=== PATIENT | female | born 1990 | race Caucasian/White ===

== ENCOUNTER → 2016-09-02 | Outpatient (CLI) | payer BC ==
[2016-09-02 16:24] LABS: CH 32.1; CHCM 34.8; HCT 36.7 % (34.0-46.0); HDW 2.95; HGB 12.7 gm/dL (11.4-16.0); MCH 31.9 pg (25.0-35.0); MCHC 34.5 g/dL (31.0-37.0); MCV 92.7 fL (80.0-100.0); Mean Platelet Volume 6.6; RBC 3.97 m/uL (3.80-5.40); RDW 13.1 % (11.5-15.5); WBC 8.1 k/uL (3.8-10.6)
== END | disposition home or self-care (01) ==
LOC: LABWHC1 15:05
PROVIDERS: ATTEND Obstetrics & Gynecology
DX: Z34.92 Encounter for supervision of normal pregnancy, unspecified, second trimester (principal); Z3A.00 Weeks of gestation of pregnancy not specified
CPT/HCPCS: 36415; 82950; 85027

== ENCOUNTER → 2016-10-22 | Outpatient (CLI) | payer BC ==
--- NOTE | 2016-10-23 09:34 | US ---
EXAMINATION TYPE: US OB anatomy transabd DATE OF EXAM: 10/22/2016 4:39 PM COMPARISON: NONE HISTORY: Large for Dates O36.63X0 LGA, pt has no other complaints at this time TECHNIQUE: Transabdominal (TA) EXAM MEASUREMENTS: GESTATIONAL AGE / DATING Physician Established: (33 weeks/4 days) EDC: 12/06/2016 Dates by LMP: Unknown Dates by First Scan: No prior Dates by Current Scan for: (33 weeks/4 days) EDC: 12/06/2016 SURVEY IUP: Single PLACENTA: Posterior PREVIA: No previa FANNY: 13.7 cm Normal CERVICAL LENGTH (transabdominal: norm > 3.0cm): 3.5 cm BIOMETRY PRESENTATION: Vertex BPD: 8.5 cm 34 weeks / 2 days HC: 31.4 cm 35 weeks / 2 days AC: 30.7 cm 34 weeks / 5 days FL: 5.7 cm 30 weeks / 0 days ESTIMATED WEIGHT IN GRAMS: 2177 grams ESTIMATED WEIGHT IN LBS/OZS: 4 lbs. 13 oz. WEIGHT PERCENTAGE BASED ON ESTABLISHED DATE: 36 % HC/AC: 1.02 Normal FL/AC: 19 Abnormal HEART RATE: 146 bpm RHYTHM: Normal ANATOMY SEEN (within normal limits): * Lateral Vent (< 1 cm) 0.3 cm Midline Falx Cavus Septi Pellucidi Four Chamber Heart Outflow tracts: LVOT Stomach Situs Nose / Lips Diaphragm Kidneys (bilateral) Bladder Cord Insert Three Vessel Cord ANATOMY NOT SEEN: * Cisterna Magna (< 1.1 cm) cm * Nuchal Fold (< 0.6 cm) cm * Cerebellum (varies with age) cm Choroid Plexus (bilateral) RVOT Longitudinal Spine Transverse Spine Arms (bilateral) Legs (bilateral) Single, viable IUP, Growth parameters wnl, FL/AC slightly abnormal- could be technical, otherwise s can appeared wnl IMPRESSION: 1. 3. Cardiac activity at the time of this examination was 146 bpm. Single intrauterine gestation estima radha at 33 weeks 4 days gestation based on the current ultrasound measurements. This has a calculated EDC of 12/06/2016. Correlate this with the physician established EDC of 12/06/2016. 2. Lower portions of the examination which were nondiagnostic for the anatomy during this exam.
== END | disposition home or self-care (01) ==
LOC: RADUSWWP 16:17
PROVIDERS: ATTEND Obstetrics & Gynecology
DX: O36.63X0 Maternal care for excessive fetal growth, third trimester, not applicable or unspecified (principal); Z3A.33 33 weeks gestation of pregnancy
CPT/HCPCS: 76811

== ENCOUNTER 2016-10-26 13:53 | Observation (INO) | payer BC, OTHER ==
[2016-10-26 15:42] LABS: Amorphous Sediment,Urine Occasional /hpf; Appearance,Urine Cloudy (Clear); Bilirubin,Urine Negative (Negative); Glucose,Urine (UA) Negative (Negative); Ketones,Urine Negative (Negative); Leukocyte Esterase,Urine Small (Negative); Mucus,Urine Rare /hpf; Nitrite,Urine Negative (Negative); PH, Urine 7.5 (5.0-8.0); Particle Count 9340; Protein,Urine Trace (Negative); RBC,Urine 1 /hpf (0-5); Specific Gravity,Urine 1.017 (1.001-1.035); Squamous Epithelial Cell,Urine 22 /hpf (0-4); UA Billing (MACRO vs. MICRO) MICRO; WBC,Urine 11 /hpf (0-5)
[2016-10-26] MEDS: LACTATED RINGERS 2,000 ML IV SCH ×2 (16:00→16:51)
[2016-10-26 16:36] LABS: Basophils # (A) 0.1 k/uL (0-0.2); Basophils % (A) 1 %; CH 31.1; CHCM 33.4; Eosinophils # (A) 0.2 k/uL (0-0.7); Eosinophils % (A) 2 %; HCT 38.4 % (34.0-46.0); HDW 3.28; HGB 12.7 gm/dL (11.4-16.0); Luc # (Auto) 0.25; Luc % (Auto) 3; Lymphocytes # (A) 1.3 k/uL (1.0-4.8); Lymphocytes % (A) 18 %; MCH 30.9 pg (25.0-35.0); MCV 93.7 fL (80.0-100.0); Mean Platelet Volume 6.6; Monocytes # (A) 0.5 k/uL (0-1.0); Monocytes % (A) 7 %; Neutrophils # (A) 5.1 k/uL (1.3-7.7); Neutrophils % (A) 69 %; RBC 4.09 m/uL (3.80-5.40); RDW 13.2 % (11.5-15.5); WBC 7.4 k/uL (3.8-10.6); WBC (Perox) 7.72
[2016-10-26] MEDS: BETAMET ACET-BETAMETH SOD PHOS 6 MG/ML VIAL IM SCH (16:52)
[2016-10-26] MEDS: NIFEdipine 10 MG CAP PO PRN ×3 (17:57→18:52)
[2016-10-26] MEDS ORDERED: LACTATED RINGERS 1,000 ML IV SCH (18:00)
[2016-10-26 20:08] VITALS: BMI 30.1
--- NOTE | 2016-10-26 20:21 | P.MSEPDOC ---
Presenting Problems - Arrival Data Date of Arrival on Unit: 10/26/16 Time of Arrival on Unit: 19:45 Mode of Transport: Ambulatory - Complaint OB-Reason for Admission/Chief Complaint: Possible Onset of Labor Medical History - Information : 7 Para: 1 Term: 1 : 0 Abortions: Spontaneous or Elective: 0 Number of Living Children: 1 - Gestational Age Expected Date of Delivery: 12/06/16 Gestational Age by OSWALDO (wks/days): 34 Weeks and 1 Days Review of Systems - Review of Systems Constitutional: No problems Breast: No problems ENT: No problems Cardiovascular: No problems Respiratory: No problems Gastrointestinal: No problems Genitourinary: No problems Musculoskeletal: No problems Neurological: No problems Skin: No problems Comment: mild asthma Vital Signs - Temperature Temperature: 97.7 F Temperature Source: Temporal Artery Scan - Pulse Brachial Pulse Rate: 102 Pulse Assessment Method: Automatic Cuff - Respirations Respiratory Rate: 18 Oxygen Delivery Method: Room Air - Blood Pressure Right Arm Blood Pressure: 121/67 Blood Pressure Mean: 85 Blood Pressure Source: Automatic Cuff Medical Screen Scoring (Pre) - Cervical Exam Dilation: 0 cm = 0 Membranes: Intact - Uterine Contractions Frequency: < 36 weeks = 6 Duration: N/A Intensity: N/A - Maternal Vital Signs Maternal Temperature: N/A Maternal Blood Pressure: N/A Signs of Preeclampsia: N/A Maternal Respirations: N/A - Maternal Trauma Maternal Trauma: N/A - Assessment Baseline FHR: 140 Heart Rate - NICHD Category: Category I (Normal) = 0 NST: Reactive - Total Score Total Score (Pre): 6 Physician Notification (Pre) - Physician Notified Physician Notified Date: 10/26/16 Physician Notified Time: 14:50 Physician/Practitioner Notifed:: dr pruett Spoke With: dr pruett - Notification Comment Comment: Get UA and oral hydration Physician Notification (Post) - Physician Notified Physician Notified Date: 10/26/16 Physician Notified Time: 19:25 Physician/Practitioner Notified:: Dr Pruett Spoke With: Dr Pruett - Notification Comment Comment: Admit as 23 hour OBV Disposition - Disposition OB Disposition: Admit Transferred to:: [facility] I agree with the RN Medical Screening Exam: Yes Risk & Benefit of care provided described in d/c instruction: Yes Diagnosis: LABOR WITHOUT DELIVERY, THIRD TRIMESTER
[2016-10-26] MEDS: ACETAMINOPHEN TAB 500 MG TAB PO PRN (20:32)
[2016-10-26] MEDS ORDERED: BUTORPHANOL 1 MG/ML 1 ML VIAL IV PRN (22:41)
[2016-10-27] MEDS: NIFEdipine 10 MG CAP PO SCH ×3 (01:00→13:15)
[2016-10-27] MEDS: LACTATED RINGERS 1,000 ML IV SCH ×3 (01:03→15:20)
[2016-10-27 07:39] VITALS: BP 118/64; PULSE 93; RESP 17; TEMP 97.1
[2016-10-27] MEDS: ACETAMINOPHEN TAB 500 MG TAB PO PRN (07:44)
[2016-10-27] MEDS: BETAMET ACET-BETAMETH SOD PHOS 6 MG/ML VIAL IM SCH (16:57)
--- NOTE | 2016-10-27 17:10 | P.DS ---
Providers Date of admission: 10/26/16 19:34 Expected date of discharge: 10/27/16 Attending physician: Jayy Long Primary care physician: Jayy Long Hospital Course: She had is doing very well. She is now received 2 doses of Celestone has been here for greater than 24 hours. Contractions have essentially dissipated. In discussing options with Gisele the decision was made that she did not want to go home on any medication. This is certainly reasonable approach as typically we would not send her home on any tocolytics. We'll plan to see her in 2 days in the office. She is aware to return with increasing contractions or or pains. Vital signs otherwise stable. Heart regular, lungs clear, extremities without pain. Abdomen is soft and normal no further contractions. Assessment intrauterine at 34 weeks. Plan discharged home follow up in 2 days. Patient Condition at Discharge: Good Plan - Discharge Summary Discharge Medication List No Known Home Medications [No Known Home Medications] 10/26/16 [History] Follow up Appointment(s)/Referral(s): Jayy Long DO [Primary Care Provider] - 3 Days Activity/Diet/Wound Care/Special Instructions: pelvic rest. modified bed rest until 35 weeks Discharge Disposition: HOME SELF-CARE
== END 2016-10-27 17:35 | disposition home or self-care (01) ==
LOC: FBPOP 13:53 → 4FBP 19:34
PROVIDERS: ADMIT Obstetrics & Gynecology; ATTEND Obstetrics & Gynecology
DX: O60.03 Preterm labor without delivery, third trimester (principal); Z3A.34 34 weeks gestation of pregnancy
CPT/HCPCS: 59025; 99214; 96360; 96361; 96372; 85025; 81001; G0378 ×2; J0702 ×2

== ENCOUNTER 2016-11-02 20:25 | Observation (INO) | payer BC, OTHER ==
[2016-11-02 21:52] LABS: Basophils % (A) 1 %; CHCM 34.3; Eosinophils # (A) 0.2 k/uL (0-0.7); Eosinophils % (A) 2 %; HCT 34.8 % (34.0-46.0); HDW 3.31; HGB 11.8 gm/dL (11.4-16.0); Luc # (Auto) 0.21; Luc % (Auto) 3; Lymphocytes # (A) 1.5 k/uL (1.0-4.8); Lymphocytes % (A) 18 %; MCH 30.9 pg (25.0-35.0); MCV 90.8 fL (80.0-100.0); Mean Platelet Volume 6.6; Monocytes # (A) 0.6 k/uL (0-1.0); Monocytes % (A) 7 %; Neutrophils # (A) 5.9 k/uL (1.3-7.7); Neutrophils % (A) 70 %; RBC 3.83 m/uL (3.80-5.40); RDW 13.3 % (11.5-15.5); WBC 8.4 k/uL (3.8-10.6); WBC (Perox) 8.82
[2016-11-02] MEDS: BUTORPHANOL 1 MG/ML 1 ML VIAL IV PRN (22:03)
[2016-11-02] MEDS ORDERED: ONDANSETRON 4 MG/2 ML VIAL IVP PRN (23:33)
[2016-11-02] MEDS ORDERED: BUTORPHANOL 1 MG/ML 1 ML VIAL IV PRN (23:34)
[2016-11-02 23:57] VITALS: BP 114/58; PULSE 93; RESP 18; TEMP 96.6; BMI 29.0
[2016-11-03] MEDS: BUTORPHANOL 1 MG/ML 1 ML VIAL IV PRN ×4 (00:02→06:04)
[2016-11-03] MEDS: LACTATED RINGERS 1,000 ML IV SCH ×2 (00:11→09:07)
--- NOTE | 2016-11-03 11:08 | P.HPOB ---
History of Present Illness H&P Date: 11/03/16 Chief Complaint: Intrauterine 35 weeks: labor Dianne is a 26-year-old at 35 weeks gestation who has been anurag every 2-5 minutes throughout the night. She began naurag last evening and got very severe and her mother brought her into labor and delivery. At that time she was dilated to an intact 3 cm 50% effaced and -3 station. She was tracing contractions every few minutes on the tocodynamometer but despite this over the first 2 hours she made no cervical change. However she stated her pain was a 10 out of 10 and she was given Stadol to see if we could get her pain better and maybe get her some rest and see if the contractions would stop. They did not stop and she requested to stay overnight with pain control. We have admitted her for same. heart tones are in the 130s to 140s and have been reactive. There are no other gross findings. Her course otherwise generally speaking has been unremarkable. Vital signs are stable and afebrile. Heart regular, lungs clear, extremities without pain. Abdomen is soft and gravid uterus is noted. I did palpate her uterus this morning and during a contraction I would rate the contraction has mild to almost moderate but certainly not severe. Assessment intrauterine 35 weeks. Plan observation and then likely discharge with no further cervical change. Past Medical History Past Medical History: No Reported History History of Any Multi-Drug Resistant Organisms: None Reported Past Surgical History: No Surgical Hx Reported Past Anesthesia/Blood Transfusion Reactions: No Reported Reaction Past Psychological History: Bipolar, Depression Smoking Status: Never smoker Past Alcohol Use History: Occasional Past Drug Use History: None Reported - Past Family History Mother Family Medical History: Cancer Father Family Medical History: AFIB Medications and Allergies Home Medications Medication Instructions Recorded Confirmed Type Pnv with Ca,No.72/Iron/FA 1 tab PO DAILY 11/02/16 11/02/16 History [ Plus Tablet] Allergies Allergy/AdvReac Type Severity Reaction Status Date / Time Sulfa (Sulfonamide Allergy Rash/Hives Verified 11/02/16 20:38 Antibiotics) venom-honey bee Allergy Unknown Verified 11/02/16 20:38 [bee venom (honey bee)] Exam Osteopathic Statement: *. No significant issues noted on an osteopathic structural exam other than those noted in the History and Physical/Consult. - Vital Signs Vital signs: Vital Signs Temp Pulse Resp BP Pulse Ox 11/02/16 23:32 96.6 F L 93 18 114/58 99 11/02/16 21:39 96.6 F L 93 18 114/58 11/02/16 20:39 96.9 F L 122 H 20 129/79 99 Intake and Output 11/02/16 11/03/16 11/03/16 22:59 06:59 14:59 Intake Total 700 Balance 700 Intake: IV 700 Lactated Ringers 1,000 ml 700 @ 100 mls/hr IV .Q10H [facility] Rx#:[id number] Other: # Voids 1 Weight 83.915 kg 83.915 kg Results Result Diagrams: 11/02/16 21:01
--- NOTE | 2016-11-03 11:10 | P.DS ---
Providers Date of admission: 11/02/16 23:19 Expected date of discharge: 11/03/16 Attending physician: Jayy Long Primary care physician: Stated None Hospital Course: I did recheck Gisele and she was still 2 and half to 3 cm dilated percent effaced -3 station. Over 14 are timeframe she is made no cervical change and as stated previously I did not believe her contraction was that strong. We discussed labor as a dynamic of contractions strong enough to cause cervical change both thinning out and dilating. She is made no change now for approximately 14 hours and we'll therefore discharged patient to home. During this discussion with she and her I did offer to start her on Procardia and watch her for another couple of hours and see if that the stated the contractions she refuses this treatment option. 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 She is aware to return to labor and delivery should contractions get stronger and more regular. As stated previously the contractions on the monitor are not registering as strong and are certainly not in a clear labor pattern. Assessment intrauterine at 35 weeks. Plan discharged home follow up with me on or return sooner should contractions get stronger or leaking of fluid or other signs or symptoms of labor continue to happen Patient Condition at Discharge: Good Plan - Discharge Summary Discharge Medication List Pnv with Ca,No.72/Iron/FA [ Plus Tablet] 1 tab PO DAILY 11/02/16 [ History] Follow up Appointment(s)/Referral(s): Jayy Long DO [Doctor of Osteopathic Medicine] - 3 Days Activity/Diet/Wound Care/Special Instructions: Return with stronger contractions Discharge Disposition: HOME SELF-CARE
--- NOTE | 2016-12-24 08:18 | P.MSEPDOC ---
Presenting Problems - Arrival Data Date of Arrival on Unit: 11/02/16 Time of Arrival on Unit: 20:25 Mode of Transport: Ambulatory - Complaint OB-Reason for Admission/Chief Complaint: Possible Onset of Labor Medical History - Information : 7 Para: 1 Term: 1 : 0 Abortions: Spontaneous or Elective: 5 Number of Living Children: 1 - Gestational Age Expected Date of Delivery: 12/06/16 Gestational Age by OSWALDO (wks/days): 42 Weeks and 4 Days Review of Systems - Review of Systems Constitutional: No problems Breast: No problems ENT: No problems Cardiovascular: No problems Respiratory: No problems Gastrointestinal: No problems Genitourinary: No problems Musculoskeletal: No problems Neurological: No problems Skin: No problems Vital Signs - Temperature Temperature: 96.6 F Temperature Source: Temporal Artery Scan - Pulse Right Pulse Rate: 93 Pulse Assessment Method: Automatic Cuff - Respirations Respiratory Rate: 18 Oxygen Delivery Method: Room Air O2 Sat by Pulse Oximetry: 99 - Blood Pressure Right Arm Blood Pressure: 114/58 Blood Pressure Mean: 76 Blood Pressure Source: Automatic Cuff Medical Screen Scoring (Pre) - Cervical Exam Dilation: 1-3 cm = 1 Effacement: More than 50% = 2 Membranes: Intact - Uterine Contractions Frequency: > 5 minutes apart = 1 Duration: > 40 seconds = 2 Intensity: N/A - Maternal Vital Signs Maternal Temperature: N/A Maternal Blood Pressure: N/A Signs of Preeclampsia: N/A Maternal Respirations: N/A - Maternal Trauma Maternal Trauma: N/A - Assessment Baseline FHR: 135 Heart Rate - NICHD Category: Category I (Normal) = 0 NST: Reactive Position: N/A Station: N/A - Total Score Total Score (Pre): 6 - Level of Risk Level of Risk: Medium (6-9) Physician Notification (Pre) - Physician Notified Physician Notified Date: 11/02/16 Physician Notified Time: 20:46 Physician/Practitioner Notifed:: Dr. Long Spoke With: Dr. Long New Order Received: Yes - Notification Comment Comment: Orders for IV hydration and recheck in hour. Medical Screen Scoring (Post) - Cervical Exam Dilation: 1-3 cm = 1 Effacement: More than 50% = 2 Membranes: Intact - Uterine Contractions Frequency: > 5 minutes apart = 1 Duration: N/A Intensity: N/A - Maternal Vital Signs Maternal Temperature: N/A Maternal Blood Pressure: N/A Signs of Preeclampsia: N/A Maternal Respirations: N/A - Maternal Trauma Maternal Trauma: N/A - Assessment Heart Rate: 135 Heart Rate - NICHD Category: Category I (Normal) = 0 NST: Reactive Position: N/A Station: N/A - Total Score Total Score (Post): 4 - Post Treatment Level of Risk Post Treatment Level of Risk: Low (0-5) Physician Notification (Post) - Physician Notified Physician Notified Date: 11/02/16 Physician Notified Time: 23:15 Physician/Practitioner Notified:: Dr. Long Spoke With: Dr. Long New Order Received: Yes - Notification Comment Comment: Orders for zofran,stadol, and continue IV hydration. Disposition - Disposition OB Disposition: Admit, Observe Transferred to:: [address] Discharge Date: 11/03/16 Discharge Time: 11:30 I agree with the RN Medical Screening Exam: Yes Risk & Benefit of care provided described in d/c instruction: Yes Diagnosis: RELATED CONDITIONS, UNSPECIFIED, THIRD TRIMESTER
== END 2016-11-03 11:30 | disposition home or self-care (01) ==
LOC: FBPOP 20:25 → 4FBP 23:19
PROVIDERS: ADMIT Obstetrics & Gynecology; ATTEND Obstetrics & Gynecology
DX: O26.93 Pregnancy related conditions, unspecified, third trimester (principal); Z3A.35 35 weeks gestation of pregnancy; Z79.899 Other long term (current) drug therapy; Z88.2 Allergy status to sulfonamides; Z91.030 Bee allergy status
CPT/HCPCS: 59025; 99214; 96360; 96361; 85025; G0378 ×2; J0595 ×2; J2405; 96374; 96375; 96376

== ENCOUNTER 2016-11-17 18:02 | Inpatient (IN) | payer BC, OTHER ==
[2016-11-17] MEDS ORDERED: OXYTOCIN 10 UNIT/ML 1 ML VIAL IM PRN (19:14)
[2016-11-17] MEDS ORDERED: TERBUTALINE 1 MG/ML VIAL SQ PRN (19:14)
[2016-11-17] MEDS ORDERED: CARBOPROST TROMETHAMINE 250 MCG/ML 1 ML AMP IM PRN (19:14)
[2016-11-17] MEDS ORDERED: AMPICILLIN 2,000 MG in SODIUM CHLORIDE 0.9% 100 ML IVPB STA (19:14)
[2016-11-17] MEDS ORDERED: METHYLERGONOVINE 0.2 MG/ML 1 ML AMP IM PRN (19:14)
[2016-11-17] MEDS ORDERED: LIDOCAINE 1% (PF) 10 MG/ML (30 ML SDV) SQ PRN (19:14)
[2016-11-17 19:45] VITALS: BMI 67.8
[2016-11-17] MEDS: LACTATED RINGERS 1,000 ML IV SCH (19:48)
[2016-11-17 19:55] LABS: Basophils % (A) 0 %; CH 30.5; CHCM 34.6; Eosinophils # (A) 0.1 k/uL (0-0.7); Eosinophils % (A) 1 %; HCT 38.8 % (34.0-46.0); HDW 3.25; HGB 13.2 gm/dL (11.4-16.0); Luc # (Auto) 0.23; Luc % (Auto) 2; Lymphocytes # (A) 1.6 k/uL (1.0-4.8); Lymphocytes % (A) 17 %; MCH 30.2 pg (25.0-35.0); MCHC 34.1 g/dL (31.0-37.0); MCV 88.6 fL (80.0-100.0); Mean Platelet Volume 6.7; Monocytes # (A) 0.6 k/uL (0-1.0); Monocytes % (A) 6 %; Neutrophils % (A) 73 %; RBC 4.38 m/uL (3.80-5.40); RDW 13.9 % (11.5-15.5); WBC 9.6 k/uL (3.8-10.6); WBC (Perox) 9.54
[2016-11-17] MEDS ORDERED: fentaNYL (PF) 50 MCG/ML 5 ML AMP ONE (20:10)
[2016-11-17] MEDS ORDERED: SODIUM CHLORIDE 0.9% 100 ML BAG ONE (20:10)
[2016-11-17] MEDS ORDERED: BUPIVACAINE (PF) 0.25% 30 ML VIAL ONE (20:10)
[2016-11-17] MEDS ORDERED: BUPIVACAINE (PF) 0.25% 25 ML, fentaNYL (PF) 200 MCG in SODIUM CHLORIDE 0.9% 71 ML EPIDURAL ONE (20:31)
[2016-11-17] MEDS: AMPICILLIN 1,000 MG in SODIUM CHLORIDE 0.9% 50 ML IVPB SCH (23:23)
[2016-11-18] MEDS ORDERED: diphenhydrAMINE 50 MG/ML 1 ML VIAL IVP PRN ×2 (00:02)
[2016-11-18] MEDS ORDERED: Acetaminophen-Codeine 300-30mg TAB PO PRN ×2 (00:02)
[2016-11-18] MEDS ORDERED: SIMETHICONE 80 MG CHEWABLE PO PRN (00:02)
[2016-11-18] MEDS ORDERED: WITCH HAZEL 1 EACH MED..PAD TOPICAL PRN (00:02)
[2016-11-18] MEDS ORDERED: diphenhydrAMINE 25 MG CAP PO PRN (00:02)
[2016-11-18] MEDS ORDERED: BENZOCAINE/MENTHOL SPRAY 1 GM/SPRAY AEROSOL TOPICAL PRN (00:02)
[2016-11-18] MEDS ORDERED: diphenhydrAMINE 50 MG CAP PO PRN (00:02)
[2016-11-18] MEDS ORDERED: ACETAMINOPHEN TAB 325 MG TAB PO PRN (00:02)
[2016-11-18] MEDS ORDERED: MEASLES-MUMPS-RUBELLA VACC/PF 12,500 UNIT/0.5 ML VIAL SQ ONE (00:02)
[2016-11-18] MEDS ORDERED: HYDROCORTISONE 2.5% RECTAL CREAM 30 GM TUBE RECTAL PRN (00:02)
[2016-11-18] MEDS ORDERED: ZOLPIDEM 5 MG TAB PO PRN (00:02)
[2016-11-18] MEDS ORDERED: diphenhydrAMINE ELIXIR 25 MG/10 ML CUP PO PRN (00:02)
[2016-11-18] MEDS ORDERED: LANOLIN CREAM 5 GM TUBE TOPICAL PRN (00:02)
--- NOTE | 2016-11-18 00:05 | P.HPOB ---
History of Present Illness H&P Date: 11/18/16 Chief Complaint: Intrauterine at term active labor Dianne is a 26-year-old G E the 137 weeks gestation arrives in active labor making cervical change. She is anurag every 2-3 minutes. She began anurag strongly approximately 4:30 this afternoon. She denies leaking fluid rupture members. Early on in her she did see high risk due to a family history of gastric schisis however studies did return normal and she stopped ointment after approximately 31 weeks. The remainder the was generally unremarkable and she is feeling well at this time. Pertinent labs did include B+ blood type, Rh antibody negative, rubella was low positive with negative hepatitis B RPR and HIV. On physical exam vital signs are stable and afebrile. Heart regular, lungs clear, extremities without pain. Abdomen is soft with a gravid uterus. heart tones in the 130s to 140s and reactive. She was dilated to 5 cm 60% effaced -2 station. Artificial rupture membranes was performed and clear fluid is noted. Assessment intrauterine at term. Plan expect spontaneous vaginal delivery. She plans to use an epidural for analgesia. Past Medical History Past Medical History: No Reported History History of Any Multi-Drug Resistant Organisms: None Reported Past Surgical History: No Surgical Hx Reported Past Anesthesia/Blood Transfusion Reactions: No Reported Reaction Past Psychological History: Bipolar, Depression Smoking Status: Never smoker Past Alcohol Use History: Occasional Past Drug Use History: None Reported - Past Family History Mother Family Medical History: Cancer Father Family Medical History: AFIB Medications and Allergies Home Medications Medication Instructions Recorded Confirmed Type Pnv with Ca,No.72/Iron/FA 1 tab PO DAILY 11/02/16 11/02/16 History [ Plus Tablet] Allergies Allergy/AdvReac Type Severity Reaction Status Date / Time Sulfa (Sulfonamide Allergy Rash/Hives Verified 11/17/16 18:19 Antibiotics) venom-honey bee Allergy Unknown Verified 11/17/16 18:19 [bee venom (honey bee)] Exam Osteopathic Statement: *. No significant issues noted on an osteopathic structural exam other than those noted in the History and Physical/Consult. - Vital Signs Vital signs: Vital Signs Temp Pulse Resp BP 11/17/16 19:36 97.3 F L 16 126/84 11/17/16 19:22 107 H 18 126/84 11/17/16 18:20 96.4 F L 16 142/81 Intake and Output 11/17/16 11/17/16 11/18/16 14:59 22:59 06:59 Other: Weight 185 kg Patient Weight 11/18/16 06:59 Weight 185 kg Results Result Diagrams: 11/17/16 19:40
--- NOTE | 2016-11-18 00:06 | P.PROBDLV ---
Vaginal Delivery Note - . Vaginal Delivery Note: Patient progressed complete and pushing with spontaneous vaginal delivery of a viable male over an intact perineum. I did walk and as baby was being delivered. Falling deliver the head a nuchal cord 1 was reduced and baby was then fully delivered. Baby was then placed on mother's abdomen with the umbilical cord was clamped cut usual fashion following approximately 30 seconds of pulsation. Mouth and nares were also bulb suctioned at this time an nursery personnel was present to assume care. Placenta was then delivered intact and Pitocin was added to the IV. scores were 8 and 9 at one and 5 minutes respectively weight is pending. Baby and mother however appear stable.
[2016-11-18] MEDS: SENNOSIDES-DOCUSATE SODIUM 1 EACH TAB PO SCH ×2 (08:03→22:16)
--- NOTE | 2016-11-18 09:12 | P.PROBDLV ---
Vaginal Delivery Note - . Vaginal Delivery Note: Gisele is doing very well day 1. She is ambulating, voiding. She is tolerating the diet thus far. Vital signs are stable and afebrile. Heart regular, lungs clear, extremities without pain. Assessment day 1. Plan continue current care.
[2016-11-18] MEDS: IBUPROFEN 600 MG TAB PO PRN ×2 (12:10→18:38)
[2016-11-18] MEDS: OXYTOCIN 30 UNITS/500 ML NS 30 UNIT in SALINE 1 500ML.BAG IV SCH ×2 (22:14→23:27)
[2016-11-18] MEDS: LACTATED RINGERS 1,000 ML IV SCH ×2 (22:15→22:16)
[2016-11-19] MEDS: IBUPROFEN 600 MG TAB PO PRN (06:31)
--- NOTE | 2016-11-19 07:46 | P.DS ---
Providers Date of admission: 11/17/16 19:24 Expected date of discharge: 11/19/16 Attending physician: Jayy Long Primary care physician: Jayy Long Hospital Course: Overall Gisele is doing very well post day 2. She is ambulating, voiding and she is tolerating her diet. She voices no complaints. Vital signs are stable and afebrile. Heart regular, lungs clear, extremities without pain. Abdomen is soft uterus is firm below the umbilicus and lochia is reported to be light. Assessment day 2. Plan discharged home follow up with me in 6 weeks. Prescription for Motrin 600 has also been provided. All the questions are answered for her at this time. He is stable for discharge at this time Patient Condition at Discharge: Good Plan - Discharge Summary New Discharge Prescriptions: Ibuprofen [Motrin] 600 mg PO Q6HR PRN #30 tab PRN Reason: Pain Discharge Medication List Pnv with Ca,No.72/Iron/FA [ Plus Tablet] 1 tab PO DAILY 11/02/16 [ History] Ibuprofen [Motrin] 600 mg PO Q6HR PRN #30 tab 11/19/16 [Rx] Follow up Appointment(s)/Referral(s): Jayy Long DO [Primary Care Provider] - 6 Weeks Activity/Diet/Wound Care/Special Instructions: No heavy lifting limited stairs and driving and pelvic rest. If any high temperatures, heavy bleeding, or severe pain call my office Discharge Disposition: HOME SELF-CARE
[2016-11-19 09:04] VITALS: BP 108/63; PULSE 81; RESP 16; TEMP 98.4
[2016-11-19] MEDS: SENNOSIDES-DOCUSATE SODIUM 1 EACH TAB PO SCH (09:05)
== END 2016-11-19 11:20 | disposition home or self-care (01) | DRG 775 ==
LOC: FBPOP 18:02 → 4FBP 19:24
PROVIDERS: ADMIT Obstetrics & Gynecology; ATTEND Obstetrics & Gynecology
PROC: 10907ZC Drainage of Amniotic Fluid, Therapeutic from Products of Conception, Via Natural or Artificial Opening (ICD-10-PCS; principal; 2016-11-17)
PROC: 10E0XZZ Delivery of Products of Conception, External Approach (ICD-10-PCS; principal; 2016-11-17)
PROC: 00HU33Z Insertion of Infusion Device into Spinal Canal, Percutaneous Approach (ICD-10-PCS; principal; 2016-11-17)
PROC: 3E0R3CZ (ICD-10-PCS; principal; 2016-11-17)
DX: O69.81X0 Labor and delivery complicated by cord around neck, without compression, not applicable or unspecified (principal); Z88.2 Allergy status to sulfonamides; Z37.0 Single live birth; Z3A.37 37 weeks gestation of pregnancy
CPT/HCPCS: 59025; 85025; 88307; 90471; 90707; 99213

== ENCOUNTER 2017-08-01 21:30 | Outpatient (CLI) | payer BC, OTHER ==
[2017-08-01] MEDS ORDERED: MAGNESIUM SULFATE-WATER PMX 4 GM in WATER FOR INJECTION 50 50ML.BAG IVPB ONE (22:04)
[2017-08-01] MEDS ORDERED: MAGNESIUM SULFATE-WATER PMX 20 GM in WATER FOR INJECTION 1 500ML.BAG IV SCH (22:15)
[2017-08-01] MEDS ORDERED: LACTATED RINGERS 1,000 ML IV SCH (22:15)
[2017-08-01] MEDS ORDERED: BETAMET ACET-BETAMETH SOD PHOS 6 MG/ML VIAL IM SCH (22:30)
--- NOTE | 2017-08-01 22:38 | US ---
EXAM: US After First Trimester, Transabdominal CLINICAL HISTORY: Reason: edc needed and complete ultrasound TECHNIQUE: Real-time transabdominal obstetrical ultrasound of the maternal pelvis and a second or third trimester with image documentation. COMPARISON: No relevant prior studies available. FINDINGS: Fetus: Gallegos Heart rate: heart rate 149 bpm. Presentation: Vertex Placenta: Placenta anterior. No evidence of previa. Amniotic fluid: FANNY measures 13.1, within normal limits. Anatomy: Limited due to gestational age BIOMETRICS Gestational age by US: Average ultrasound age 30 weeks 0 days, OSWALDO 10/10/17 EFW: 1512 g (3 lbs. 5 oz.) BPD: 7.8 cm, corresponding to gestational age of 31 weeks 3 days HC: 28.8 cm, corresponding to gestational age of 31 weeks 4 days AC: 26.1 cm, corresponding to gestational age of 30 weeks 1 day FL: 5.5 cm, corresponding to gestational age of 29 weeks 1 day MATERNAL: Cervix: Limited visualization due to position of the head Free fluid: No free fluid detected. IMPRESSION: 1. Gallegos in vertex presentation. 2. Average ultrasound age 30 weeks 0 days (OSWALDO 10/10/17). 3. heart rate 149 BPM.
--- NOTE | 2017-08-01 22:45 | P.TRANS ---
Providers Expected date of discharge: 08/01/17 Attending physician: Jayy Long Primary care physician: Jayy Long [facility] Course: movement however, she is basically 30 weeks on ultrasound and she does relate on further questioning that she had an ultrasound a few weeks ago that date her possibly between 20 and 30 weeks. She voices no other issues with the to this point. Her description of symptoms tonight, she reports that she had intercourse this morning and had no other problems throughout the day however approximately 8 PM while at work she began having contractions every 2- 3 minutes that are painful she was having a difficult time breathing through them she called our office and I informed her to go to labor and delivery. Once labor and delivery she was noted to be dilated to 2 cm 50% effaced and -3 station. Immediately we ordered a second ultrasound, 1 dose of steroids, as well as initiation of mag sulfate for tocolyse this. Due to the fact that she had intercourse this morning we were unable to do a fibronectin however. As she is only at most 30 weeks gestation we will need to transfer her to a high -risk Center for maternal- medicine consultation. I discussed this with Dr. Tinoco under the maternal- medicine service of Dr. Osiris Segundo [facility] and will plan transfer there. On physical exam currently her vital signs are stable and afebrile. Heart regular, lungs clear, extremities without pain. Abdomen is soft and contractions are palpated is mild at this point. Assessment Patient Condition at Discharge: Stable Plan - Transfer Summary Transfer Medications: Active Medications Generic Name Dose Route Start Last Admin Trade Name Freq PRN Reason Stop Dose Admin Betamethasone Acet/Betameth SodPhos 12 mg 08/01/17 22:30 08/01/17 22:33 Celestone Soluspan IM 08/02/17 22:31 12 mg Q24H TIM Administration Lactated Ringer's 1,000 mls @ 20 mls/hr 08/01/17 22:15 08/01/17 22:15 Lactated Ringers IV 20 mls/hr .Q24H TIM Administration Magnesium Sulfate 20 gm/ IV 500 mls @ 50 mls/hr 08/01/17 22:15 Solution IV .Q10H TIM 2 GM/HR
== END 2017-08-01 23:53 | disposition short-term general hospital (02) ==
LOC: FBPOP 21:30
PROVIDERS: ATTEND Obstetrics & Gynecology
DX: O60.03 Preterm labor without delivery, third trimester (principal); Z3A.30 30 weeks gestation of pregnancy
CPT/HCPCS: 76805; J0702; J3475 ×2

== ENCOUNTER 2017-08-18 22:41 | Outpatient (CLI) | payer BC, OTHER ==
[2017-08-18 23:48] VITALS: BP 122/59; PULSE 103; RESP 16; TEMP 96.7
--- NOTE | 2017-10-02 10:06 | P.MSEPDOC ---
Presenting Problems - Arrival Data Date of Arrival on Unit: 08/18/17 Time of Arrival on Unit: 22:41 Mode of Transport: Ambulatory - Complaint OB-Reason for Admission/Chief Complaint: Rule Out PROM Medical History - Information : 9 Para: 2 Term: 2 : 0 Abortions: Spontaneous or Elective: 6 Number of Living Children: 2 - Gestational Age Gestational Age by OSWALDO (wks/days): 32 Weeks and 3 Days - History Complications: No Care Review of Systems - Review of Systems Constitutional: No problems Breast: No problems ENT: No problems Cardiovascular: No problems Respiratory: No problems Gastrointestinal: No problems Genitourinary: No problems Musculoskeletal: No problems Neurological: No problems Skin: No problems Vital Signs - Temperature Temperature: 96.7 F Temperature Source: Temporal Artery Scan - Pulse Right Brachial Pulse Rate: 103 Pulse Assessment Method: Automatic Cuff - Respirations Respiratory Rate: 16 Oxygen Delivery Method: Room Air O2 Sat by Pulse Oximetry: 98 - Blood Pressure Right Arm Blood Pressure: 122/59 Blood Pressure Mean: 80 Blood Pressure Source: Automatic Cuff Medical Screen Scoring (Pre) - Cervical Exam Dilation: Exam Deferred Effacement: Exam Deferred Membranes: Intact - Uterine Contractions Frequency: N/A Duration: N/A Intensity: N/A - Maternal Vital Signs Maternal Temperature: N/A Maternal Blood Pressure: N/A Signs of Preeclampsia: N/A Maternal Respirations: N/A - Pain Assessment Pain Location and Character: Abdomen Pain Scale Used: Numeric (1 - 10) Pain Intensity: 5 Pain Description: Cramping Pain Frequency: Intermittent Pain Duration: 20 Pain Duration Units: Minutes Pain Behavior: None Exhibited - Maternal Trauma Maternal Trauma: N/A - Assessment Baseline FHR: 160 Heart Rate - NICHD Category: Category I (Normal) = 0 NST: Reactive Position: N/A Station: N/A - Total Score Total Score (Pre): 0 - Level of Risk Level of Risk: Low (0-5) Physician Notification (Pre) - Physician Notified Physician Notified Date: 08/18/17 Physician Notified Time: 23:23 Physician/Practitioner Notifed:: Dr. Reich Spoke With: Dr. Reich New Order Received: Yes - Notification Comment Comment: Amanda Xiao agree with LARON Disposition - Disposition OB Disposition: Discharge to home Discharge Date: 08/18/17 Discharge Time: 23:29 I agree with the RN Medical Screening Exam: Yes Risk & Benefit of care provided described in d/c instruction: Yes Diagnosis: FALSE LABOR BEFORE 37 COMPLETED WEEKS OF GEST, THIRD TRI
== END 2017-08-18 23:38 | disposition home or self-care (01) ==
LOC: FBPOP 22:41
PROVIDERS: ATTEND Obstetrics & Gynecology Obstetrics
DX: O47.03 False labor before 37 completed weeks of gestation, third trimester (principal); Z3A.32 32 weeks gestation of pregnancy
CPT/HCPCS: 59025; 84112; 99213

== ENCOUNTER 2017-09-04 20:35 | Outpatient (CLI) | payer BC, OTHER ==
[2017-09-04] MEDS ORDERED: LACTATED RINGERS 1,000 ML IV ONE (21:24)
[2017-09-04 21:30] VITALS: BP 122/71; PULSE 120; RESP 16; TEMP 98
[2017-09-04] MEDS ORDERED: LACTATED RINGERS 1,000 ML IV SCH (21:30)
[2017-09-04] MEDS: NIFEdipine 10 MG CAP PO PRN ×3 (22:05→22:47)
--- NOTE | 2017-09-05 10:34 | P.MSEPDOC ---
Presenting Problems - Arrival Data Date of Arrival on Unit: 09/04/17 Time of Arrival on Unit: 20:35 Mode of Transport: Wheelchair - Complaint OB-Reason for Admission/Chief Complaint: Possible Onset of Labor Comment: 193, contractions every 3-4 minutes Medical History - Information : 9 Para: 2 Term: 2 : 0 Abortions: Spontaneous or Elective: 0 Number of Living Children: 2 - Gestational Age Gestational Age by OSWALDO (wks/days): 34 Weeks and 2 Days Review of Systems - Review of Systems Constitutional: No problems Breast: No problems ENT: No problems Cardiovascular: No problems Respiratory: No problems Gastrointestinal: No problems Genitourinary: No problems Musculoskeletal: No problems Neurological: No problems Vital Signs - Temperature Temperature: 98 F Temperature Source: Oral - Pulse Right Brachial Pulse Rate: 120 Pulse Assessment Method: Automatic Cuff - Respirations Respiratory Rate: 16 Oxygen Delivery Method: Room Air - Blood Pressure Right Arm Blood Pressure: 122/71 Blood Pressure Mean: 88 Blood Pressure Source: Automatic Cuff Medical Screen Scoring (Pre) - Cervical Exam Dilation: 1-3 cm = 1 Membranes: Intact - Uterine Contractions Frequency: < 36 weeks = 6 Duration: > 40 seconds = 2 Intensity: N/A - Maternal Vital Signs Maternal Temperature: N/A - Pain Assessment Pain Location and Character: Abdomen Pain Scale Used: Numeric (1 - 10) Pain Intensity: 8 Pain Management Goal: 2 Pain Description: *Acute, Cramping Pain Radiation Location: no Pain Frequency: Frequent Pain Duration: 1 Pain Duration Units: Hours Pain Behavior: Facial Grimacing, Vocalization Pain Aggravating Factors: Contractions - Assessment Baseline FHR: 145 Heart Rate - NICHD Category: Category I (Normal) = 0 NST: Reactive - Total Score Total Score (Pre): 9 - Level of Risk Level of Risk: Medium (6-9) Physician Notification (Pre) - Physician Notified Physician Notified Date: 09/04/17 Physician Notified Time: 21:10 Physician/Practitioner Notifed:: liam Veras Order Received: Yes - Notification Comment Comment: iv fluids, send ffn Medical Screen Scoring (Post) - Cervical Exam Dilation: 1-3 cm = 1 Membranes: Intact - Uterine Contractions Frequency: > 5 minutes apart = 1 Duration: N/A Intensity: N/A - Total Score Total Score (Post): 2 - Post Treatment Level of Risk Post Treatment Level of Risk: Low (0-5) Physician Notification (Post) - Physician Notified Physician Notified Date: 09/04/17 Physician Notified Time: 23:16 Physician/Practitioner Notified:: liam - Notification Comment Comment: Procardia protocol finished, d/c home. Pt to call office Thursday for follow up appointment. Disposition - Disposition OB Disposition: Discharge to home, Written follow up instructions reviewed Discharge Date: 09/04/17 Discharge Time: 23:20 I agree with the RN Medical Screening Exam: Yes Risk & Benefit of care provided described in d/c instruction: Yes Diagnosis: FALSE LABOR BEFORE 37 COMPLETED WEEKS OF GEST, THIRD TRI
== END 2017-09-04 23:20 | disposition home or self-care (01) ==
LOC: FBPOP 20:35
PROVIDERS: ATTEND Obstetrics & Gynecology
DX: O47.03 False labor before 37 completed weeks of gestation, third trimester (principal); Z3A.34 34 weeks gestation of pregnancy
CPT/HCPCS: 59025; 82731; 96360; 96361; 99214

== ENCOUNTER 2017-09-12 20:20 | Observation (INO) | payer BC, OTHER ==
[2017-09-12 21:27] LABS: Appearance,Urine Cloudy (Clear); Bacteria,Urine Rare /hpf; Bilirubin,Urine Negative (Negative); Blood,Urine Negative (Negative); Color,Urine Yellow; Glucose,Urine (UA) Negative (Negative); Ketones,Urine Trace (Negative); Leukocyte Esterase,Urine Small (Negative); Mucus,Urine Few /hpf; Protein,Urine 1+ (Negative); RBC,Urine 2 /hpf (0-5); Specific Gravity,Urine 1.024 (1.001-1.035); Squamous Epithelial Cell,Urine 3 /hpf (0-4); Urobilinogen,Urine <2.0 mg/dL (<2.0); WBC,Urine 1 /hpf (0-5)
[2017-09-12] MEDS: LACTATED RINGERS 1,000 ML IV SCH (21:29)
--- NOTE | 2017-09-12 21:31 | P.HPOB ---
History of Present Illness H&P Date: 09/12/17 Chief Complaint: Contractions. This patient is a 27-year-old 9 para 2 female estimated date of confinement 10/15/2017 set by a third trimester ultrasound due to unknown gestation who presents to labor and delivery with complaints of regular painful contractions. Patient's history that she's had very little if any care and was initially seen by Dr. Long at approximately 30 weeks and transferred to maternal- medicine at 2 cm dilated and contractions. Patient was given Celestone and magnesium sulfate at that time. She has a history of 2 previous term deliveries. Patient subsequently been in to labor and delivery multiple other occasions with complaints of contractions. She is seeing Dr. Long for only 1 visit. It does not appear that she has done her Glucola and has not shown for any other visits. Estimated gestational age at this juncture is 35-2/7 weeks. Review of Systems Genitourinary: Reports Menstruation: Reports amenorrhea Past Medical History Past Medical History: Asthma History of Any Multi-Drug Resistant Organisms: None Reported Past Surgical History: No Surgical Hx Reported Past Anesthesia/Blood Transfusion Reactions: No Reported Reaction Past Psychological History: Depression Smoking Status: Never smoker - Past Family History Mother Family Medical History: Cancer Father Family Medical History: AFIB Medications and Allergies Home Medications Medication Instructions Recorded Confirmed Type Pnv,Calcium 72/Iron/Folic Acid 1 tab PO DAILY 11/02/16 09/12/17 History [ Plus Tablet] Allergies Allergy/AdvReac Type Severity Reaction Status Date / Time Sulfa (Sulfonamide Allergy Rash/Hives Verified 09/12/17 20:50 Antibiotics) venom-honey bee Allergy Unknown Verified 09/12/17 20:50 [bee venom (honey bee)] Exam - Vital Signs Vital signs: Intake and Output 09/12/17 09/12/17 09/12/17 06:59 14:59 22:59 Other: Weight 190 kg Patient Weight 09/13/17 06:59 Weight 190 kg - OBG Physical Exam Abdomen: bowel sounds normal, no diffuse tenderness, no bruit present, no guarding noted, no hepatomegaly, no splenomegaly, no mass Vulva: both: normal Cervix: Cervix is 3 cm per the nurse. Uterus: enlarged Results blood work shows she is B+, rubella low positive, hepatitis B negative , RPR nonreactive, group B strep is unknown Assessment and Plan Assessment: This is a 27-year-old 9 para 2 female 35-2/7 weeks gestation set by a late trimester ultrasound who presents with complaints of contractions. Patient has a history of contractions with 2 term deliveries. Due to the patient's noncompliance plan is for admission for observation. Patient were to go into labor we'll do antibiotic prophylaxis due to unknown group B strep status. (1) Third trimester Current Visit: Yes Status: Acute Code(s): Z34.93 - ENCNTR FOR SUPRVSN OF NORMAL PREG, UNSP, THIRD TRIMESTER SNOMED Code(s): 05966845 (2) contractions Current Visit: Yes Status: Acute Code(s): O47.9 - FALSE LABOR, UNSPECIFIED SNOMED Code(s): 914184529 (3) Non-compliance Current Visit: Yes Status: Acute Code(s): Z91.19 - PATIENT'S NONCOMPLIANCE W OTH MEDICAL TREATMENT AND REGIMEN SNOMED Code(s): 4466019
[2017-09-12 21:35] LABS: Amphetamine Screen,Urine Not Detected (NotDetected); Barbiturate Screen,Urine Not Detected (NotDetected); Benzodiazepines Screen,Urine Not Detected (NotDetected); Cocaine Screen,Urine Not Detected (NotDetected); Methadone Screen, Urine Not Detected (NotDetected); Opiate Screen,Urine Not Detected (NotDetected); Oxycodone Screen, Urine Not Detected (NotDetected); Phencyclidine Screen,Urine Not Detected (NotDetected); Tricyclic Antidepressant,Urine Not Detected (NotDetected); Urn Cannabinoid Scrn Not Detected (NotDetected)
[2017-09-12 21:35] LABS: Basophils # (A) 0.1 k/uL (0-0.2); Basophils % (A) 1 %; Eosinophils # (A) 0.2 k/uL (0-0.7); Eosinophils % (A) 2 %; HCT 35.3 % (34.0-46.0); HGB 11.9 gm/dL (11.4-16.0); Lymphocytes # (A) 1.5 k/uL (1.0-4.8); Lymphocytes % (A) 21 %; MCH 29.3 pg (25.0-35.0); MCHC 33.8 g/dL (31.0-37.0); MCV 86.8 fL (80.0-100.0); Mean Platelet Volume 7.2; Monocytes # (A) 0.6 k/uL (0-1.0); Monocytes % (A) 8 %; Neutrophils # (A) 4.6 k/uL (1.3-7.7); Neutrophils % (A) 65 %; Platelet Count 251 k/uL (150-450); Poikilocytosis Slight; RBC 4.06 m/uL (3.80-5.40); RDW 13.7 % (11.5-15.5)
[2017-09-12 21:58] VITALS: BMI 31.6
[2017-09-13] MEDS: LACTATED RINGERS 1,000 ML IV SCH (03:27)
--- NOTE | 2017-09-13 05:52 | P.PN ---
Progress Note - Text Progress Note Date: 09/13/17 Patient is resting this morning without complaints. She does not appear uncomfortable. She did have a regularly irregular contractions last evening with no cervical change. heart tones are reassuring. My impression is that this patient is not in labor and there is no evidence of maternal compromise. Plan is to allow the patient to eat and we'll discharge home this morning. I strongly emphasized the need for follow-up with Dr. Pierre on Thursday because she is only had 1 visit this .
--- NOTE | 2017-09-13 05:57 | P.DS ---
Providers Date of admission: 09/12/17 21:02 Expected date of discharge: 09/13/17 Attending physician: Jayy Long Primary care physician: Stated None - Discharge Diagnosis(es) (1) Third trimester Please see dictated H&P for intimate details of this patient's admission. Brief summary this is a 27-year-old 9 para 2 female admitted last evening with regular painful contractions at 35-2/7 weeks gestation. Patient was watched overnight and had no cervical change and therefore is discharge home follow up with Dr. Long on Thursday. Current Visit: Yes Status: Acute (2) contractions Current Visit: Yes Status: Acute (3) Non-compliance Current Visit: Yes Status: Acute Plan - Discharge Summary New Discharge Prescriptions: No Action Pnv,Calcium 72/Iron/Folic Acid [ Plus Tablet] 1 tab PO DAILY Discharge Medication List Pnv,Calcium 72/Iron/Folic Acid [ Plus Tablet] 1 tab PO DAILY 11/02/16 [ History] Follow up Appointment(s)/Referral(s): Jayy Long DO [Doctor of Osteopathic Medicine] - 09/15/17 Patient Instructions/Handouts: Feliberto Zamora Contractions (DC) Activity/Diet/Wound Care/Special Instructions: No intercourse. Please keep her scheduled appointment Dr. Long on Thursday Discharge Disposition: HOME SELF-CARE
== END 2017-09-13 06:30 | disposition home or self-care (01) ==
LOC: FBPOP 20:20 → 4FBP 21:02
PROVIDERS: ADMIT Obstetrics & Gynecology; ATTEND Obstetrics & Gynecology
DX: O60.03 Preterm labor without delivery, third trimester (principal); Z3A.35 35 weeks gestation of pregnancy; Z91.19 Patient's noncompliance with other medical treatment and regimen; J45.909 Unspecified asthma, uncomplicated; O99.513 Diseases of the respiratory system complicating pregnancy, third trimester; F32.9 Major depressive disorder, single episode, unspecified; O99.343 Other mental disorders complicating pregnancy, third trimester; Z80.9 Family history of malignant neoplasm, unspecified; Z82.49 Family history of ischemic heart disease and other diseases of the circulatory system; Z88.2 Allergy status to sulfonamides; Z91.030 Bee allergy status
CPT/HCPCS: 59025; 99213; 96360; 96361 ×2; 84112; 85025; 81001; 80306; G0378 ×2

== ENCOUNTER 2017-09-20 20:58 | Outpatient (CLI) | payer BC, OTHER ==
[2017-09-20 21:22] VITALS: BP 133/89; PULSE 117; RESP 16; TEMP 97.4
[2017-09-20 21:29] LABS: Appearance,Urine Clear (Clear); Bilirubin,Urine Negative (Negative); Blood,Urine Negative (Negative); Color,Urine Yellow; Glucose,Urine (UA) Negative (Negative); Ketones,Urine Negative (Negative); Leukocyte Esterase,Urine Negative (Negative); PH, Urine 6.5 (5.0-8.0); Protein,Urine Trace (Negative); Specific Gravity,Urine 1.021 (1.001-1.035)
--- NOTE | 2017-09-21 08:06 | P.MSEPDOC ---
Presenting Problems - Arrival Data Date of Arrival on Unit: 09/20/17 Time of Arrival on Unit: 20:58 Mode of Transport: Wheelchair - Complaint OB-Reason for Admission/Chief Complaint: Possible Onset of Labor Medical History - Information : 9 Para: 2 Term: 2 : 0 Abortions: Spontaneous or Elective: 0 Number of Living Children: 2 - Gestational Age Gestational Age by OSWALDO (wks/days): 36 Weeks and 3 Days Review of Systems - Review of Systems Constitutional: No problems Breast: No problems ENT: No problems Cardiovascular: No problems Respiratory: No problems Gastrointestinal: No problems Genitourinary: No problems Musculoskeletal: No problems Neurological: No problems Skin: No problems Vital Signs - Temperature Temperature: 97.4 F Temperature Source: Temporal Artery Scan - Pulse Right Supine Brachial Pulse Rate: 117 Pulse Assessment Method: Automatic Cuff - Respirations Respiratory Rate: 16 Oxygen Delivery Method: Room Air O2 Sat by Pulse Oximetry: 99 - Blood Pressure Right Arm Supine Blood Pressure: 133/89 Blood Pressure Mean: 103 Blood Pressure Source: Automatic Cuff Medical Screen Scoring (Pre) - Cervical Exam Dilation: 4-7 cm = 2 Membranes: Intact - Uterine Contractions Frequency: > or = 36 weeks =2 Duration: N/A Intensity: N/A - Maternal Vital Signs Maternal Temperature: N/A Maternal Blood Pressure: N/A Signs of Preeclampsia: N/A Maternal Respirations: N/A - Pain Assessment Pain Location and Character: Back, Abdomen Pain Scale Used: Numeric (1 - 10) Pain Intensity: 10 Pain Description: Cramping Pain Frequency: Intermittent Pain Duration: 1 Pain Duration Units: Minutes Pain Behavior: Facial Grimacing, Vocalization Pain Aggravating Factors: Contractions Non-Pharmacological Interventions: Distraction - Maternal Trauma Maternal Trauma: N/A - Assessment Baseline FHR: 135 Heart Rate - NICHD Category: Category I (Normal) = 0 NST: Reactive Position: N/A Station: N/A - Total Score Total Score (Pre): 4 - Level of Risk Level of Risk: Low (0-5) Physician Notification (Pre) - Physician Notified Physician Notified Date: 09/20/17 Physician Notified Time: 21:59 Physician/Practitioner Notifed:: Dr. Pruett Spoke With: Dr. Pruett New Order Received: Yes (D/c pt to home) - Notification Comment Comment: MSE verified by this RN Disposition - Disposition OB Disposition: Discharge to home Transferred to:: Jourdan Discharge Date: 09/20/17 Discharge Time: 22:10 I agree with the RN Medical Screening Exam: Yes Risk & Benefit of care provided described in d/c instruction: Yes Diagnosis: FALSE LABOR BEFORE 37 COMPLETED WEEKS OF GEST, THIRD TRI
== END 2017-09-20 22:05 | disposition home or self-care (01) ==
LOC: FBPOP 20:58
PROVIDERS: ATTEND Obstetrics & Gynecology
DX: O47.03 False labor before 37 completed weeks of gestation, third trimester (principal); Z3A.36 36 weeks gestation of pregnancy
CPT/HCPCS: 59025; 81003; 99213

== ENCOUNTER 2017-09-28 20:55 | Inpatient (IN) | payer BC, OTHER ==
[2017-09-28] MEDS ORDERED: CARBOPROST TROMETHAMINE 250 MCG/ML 1 ML AMP IM PRN (21:51)
[2017-09-28] MEDS ORDERED: METHYLERGONOVINE 0.2 MG/ML 1 ML AMP IM PRN (21:51)
[2017-09-28] MEDS ORDERED: OXYTOCIN 10 UNIT/ML 1 ML VIAL IM PRN (21:51)
[2017-09-28] MEDS ORDERED: TERBUTALINE 1 MG/ML VIAL SQ PRN (21:51)
[2017-09-28] MEDS ORDERED: LIDOCAINE 1% (PF) 10 MG/ML (30 ML SDV) SQ PRN (21:51)
[2017-09-28] MEDS: LACTATED RINGERS 1,000 ML IV SCH ×2 (22:10→23:22)
[2017-09-28 22:11] VITALS: BMI 34.1
[2017-09-28 22:31] LABS: Basophils % (A) 1 %; Eosinophils # (A) 0.2 k/uL (0-0.7); Eosinophils % (A) 3 %; HCT 36.5 % (34.0-46.0); Hypochromasia Slight; Lymphocytes # (A) 1.5 k/uL (1.0-4.8); Lymphocytes % (A) 18 %; MCH 27.8 pg (25.0-35.0); MCHC 32.9 g/dL (31.0-37.0); MCV 84.5 fL (80.0-100.0); Mean Platelet Volume 7.3; Monocytes # (A) 0.6 k/uL (0-1.0); Monocytes % (A) 7 %; Neutrophils # (A) 5.7 k/uL (1.3-7.7); Neutrophils % (A) 70 %; Platelet Count 258 k/uL (150-450); RBC 4.32 m/uL (3.80-5.40); RDW 13.7 % (11.5-15.5); WBC 8.2 k/uL (3.8-10.6)
[2017-09-28] MEDS ORDERED: BUPIVACAINE (PF) 0.25% 30 ML VIAL ONE (22:40)
[2017-09-28] MEDS ORDERED: fentaNYL (PF) 50 MCG/ML 5 ML AMP ONE (22:40)
[2017-09-28] MEDS ORDERED: SODIUM CHLORIDE 0.9% 100 ML BAG ONE (22:40)
[2017-09-29] MEDS ORDERED: CITRIC ACID-SODIUM CITRATE 15 ML CUP PO ONE (00:20)
--- NOTE | 2017-09-29 03:03 | P.HPOB ---
History of Present Illness H&P Date: 09/29/17 Chief Complaint: IUP term: active labor Dianne is a 27-year-old at 37 weeks gestation who arrives in active labor making cervical change. Her Precis course has been limited due to late care. She began her care at approximately 33 weeks. Pertinent labs included B+ blood type Rh and was negative, rubella was low positive and hepatitis B surface antigen and RPR as well as GBS were negative. On physical exam vital signs are stable and afebrile. Heart regular, lungs clear, extremities are without pain. Osteopathic exams unremarkable. She was dilated to 5 cm 80% effaced -2 station. Artificial rupture membranes was performed and the amount of fluid was consistent with polyhydramnios. This was however previously not diagnosed on ultrasound. That said, her FANNY at 34 weeks was 18.5. She did see maternal medicine in consultation due to history of premature labor. It is also noted that father baby does have some type of cardiac anomaly. Assessment intrauterine at term. Plan expect spontaneous vaginal delivery and expectation for epidural for analgesia. Past Medical History Past Medical History: Asthma History of Any Multi-Drug Resistant Organisms: None Reported Past Surgical History: No Surgical Hx Reported Past Anesthesia/Blood Transfusion Reactions: No Reported Reaction Past Psychological History: Depression Smoking Status: Never smoker Past Alcohol Use History: Occasional Past Drug Use History: None Reported - Past Family History Mother Family Medical History: Cancer Father Family Medical History: AFIB Medications and Allergies Home Medications Medication Instructions Recorded Confirmed Type Pnv,Calcium 72/Iron/Folic Acid 1 tab PO DAILY 11/02/16 09/28/17 History [ Plus Tablet] Allergies Allergy/AdvReac Type Severity Reaction Status Date / Time Sulfa (Sulfonamide Allergy Rash/Hives Verified 09/28/17 21:00 Antibiotics) venom-honey bee Allergy Unknown Verified 09/28/17 21:00 [bee venom (honey bee)] Exam Osteopathic Statement: *. No significant issues noted on an osteopathic structural exam other than those noted in the History and Physical/Consult. - Vital Signs Vital signs: Vital Signs Temp Pulse Resp BP Pulse Ox 09/28/17 22:06 96.6 F L 112 H 16 139/91 99 09/28/17 21:00 98 F 126 H 16 128/82 97 Intake and Output 09/28/17 09/28/17 09/29/17 14:59 22:59 06:59 Other: Weight 92.986 kg Patient Weight 09/29/17 06:59 Weight 92.986 kg Results Result Diagrams: 09/28/17 22:14
[2017-09-29] MEDS ORDERED: diphenhydrAMINE 50 MG CAP PO PRN (03:04)
[2017-09-29] MEDS ORDERED: LANOLIN CREAM 5 GM TUBE TOPICAL PRN (03:04)
[2017-09-29] MEDS ORDERED: HYDROCORTISONE 2.5% RECTAL CREAM 30 GM TUBE RECTAL PRN (03:04)
[2017-09-29] MEDS ORDERED: WITCH HAZEL 1 EACH MED..PAD TOPICAL PRN (03:04)
[2017-09-29] MEDS ORDERED: ZOLPIDEM 5 MG TAB PO PRN (03:04)
[2017-09-29] MEDS ORDERED: ACETAMINOPHEN TAB 325 MG TAB PO PRN (03:04)
[2017-09-29] MEDS ORDERED: SIMETHICONE 80 MG CHEWABLE PO PRN (03:04)
[2017-09-29] MEDS ORDERED: MEASLES-MUMPS-RUBELLA VACC/PF 12,500 UNIT/0.5 ML VIAL SQ ONE (03:04)
[2017-09-29] MEDS ORDERED: diphenhydrAMINE 25 MG CAP PO PRN (03:04)
[2017-09-29] MEDS ORDERED: BENZOCAINE/MENTHOL SPRAY 1 GM/SPRAY AEROSOL TOPICAL PRN (03:04)
[2017-09-29] MEDS ORDERED: diphenhydrAMINE 50 MG/ML 1 ML VIAL IVP PRN ×2 (03:04)
--- NOTE | 2017-09-29 03:04 | P.PROBDLV ---
Vaginal Delivery Note - . Vaginal Delivery Note: Patient progressed to complete and pushing with spontaneous vaginal delivery of a viable male over an intact perineum. Falling deliver the head anterior posterior shoulders were easily delivered with gentle downward and upward traction. Baby was then placed on mother's abdomen where the umbilical cord was allowed to pulsate for 20 seconds prior to clamping and cutting. Once this was accomplished nursery personnel was present and assumed care. Placenta was then delivered intact and Pitocin was added to the IV. scores were 9 and 9 at one and 5 minutes respectively and the weight was 6 lbs. 9 oz. Both mother and baby are stable following delivery.
[2017-09-29] MEDS: IBUPROFEN 600 MG TAB PO PRN ×3 (03:26→20:24)
[2017-09-29] MEDS ORDERED: OXYTOCIN 20 UNITS/1000 ML NS 1,000 ML IV SCH ×2 (03:36→03:45)
[2017-09-29] MEDS: SENNOSIDES-DOCUSATE SODIUM 1 EACH TAB PO SCH ×2 (14:29→21:41)
[2017-09-29] MEDS ORDERED: DIPH,PERTUS(ACELL)TETVAC-LF 0.5 ML VIAL IM ONE (14:33)
[2017-09-29] MEDS ORDERED: INFLUENZA VACCINE (6 MOS+) 60 MCG/0.5 ML SYRINGE IM ONE (14:33)
[2017-09-30] MEDS: LACTATED RINGERS 1,000 ML IV SCH (01:08)
--- NOTE | 2017-09-30 08:49 | P.DS ---
Providers Date of admission: 09/28/17 21:53 Expected date of discharge: 09/30/17 Attending physician: Jayy Long Primary care physician: Jayy Long Hospital Course: Gisele is doing very well day 1. She is ambulating, voiding, and she is tolerating her diet. She voices no complaints. Vital signs are stable and afebrile. Heart regular, lungs clear, extremities are without pain. Osteopathic exam is unremarkable. She is ready for discharged home today. She requests nothing for pain to be discharged home with. Discharge instructions were thoroughly reviewed and all questions are answered for her prior to her discharge. She will follow me in 6 weeks. Patient Condition at Discharge: Good Plan - Discharge Summary New Discharge Prescriptions: No Action Pnv,Calcium 72/Iron/Folic Acid [ Plus Tablet] 1 tab PO DAILY Discharge Medication List Pnv,Calcium 72/Iron/Folic Acid [ Plus Tablet] 1 tab PO DAILY 11/02/16 [ History] Follow up Appointment(s)/Referral(s): Jayy Long DO [Primary Care Provider] - 6 Weeks Activity/Diet/Wound Care/Special Instructions: No heavy lifting, limit stairs and driving, and pelvic rest. If any high temperatures, heavy bleeding, or severe pain call my office Discharge Disposition: HOME SELF-CARE
[2017-09-30 09:08] VITALS: BP 114/60; PULSE 79; RESP 18; TEMP 98
[2017-09-30] MEDS: SENNOSIDES-DOCUSATE SODIUM 1 EACH TAB PO SCH (09:10)
== END 2017-09-30 13:06 | disposition home or self-care (01) | DRG 775 ==
LOC: FBPOP 20:55 → 4FBP 21:53
PROVIDERS: ADMIT Obstetrics & Gynecology; ATTEND Obstetrics & Gynecology
PROC: 10E0XZZ Delivery of Products of Conception, External Approach (ICD-10-PCS; principal; 2017-09-28)
PROC: 00HU33Z Insertion of Infusion Device into Spinal Canal, Percutaneous Approach (ICD-10-PCS; 2017-09-28)
PROC: 3E0R3BZ Introduction of Anesthetic Agent into Spinal Canal, Percutaneous Approach (ICD-10-PCS; 2017-09-28)
PROC: 3E0234Z Introduction of Serum, Toxoid and Vaccine into Muscle, Percutaneous Approach (ICD-10-PCS; 2017-09-29)
PROC: 3E0234Z Introduction of Serum, Toxoid and Vaccine into Muscle, Percutaneous Approach (ICD-10-PCS; 2017-09-29)
DX: O40.3XX0 Polyhydramnios, third trimester, not applicable or unspecified (principal); O60.03 Preterm labor without delivery, third trimester; J45.909 Unspecified asthma, uncomplicated; O99.52 Diseases of the respiratory system complicating childbirth; Z37.0 Single live birth; O60.00 Preterm labor without delivery, unspecified trimester; Z23 Encounter for immunization; Z79.899 Other long term (current) drug therapy; Z86.59 Personal history of other mental and behavioral disorders; Z88.2 Allergy status to sulfonamides; Z91.030 Bee allergy status
CPT/HCPCS: 59025; 85025; 88307; 90686; 90707; 90715; 99213

== ENCOUNTER → 2017-12-03 | Outpatient (CLI) | payer BC, OTHER ==
[2017-12-03 14:03] LABS: Basophils # (A) 0.1 k/uL (0-0.2); Basophils % (A) 1 %; Eosinophils # (A) 0.2 k/uL (0-0.7); Eosinophils % (A) 4 %; HCT 43.2 % (34.0-46.0); HGB 13.7 gm/dL (11.4-16.0); Lymphocytes # (A) 1.6 k/uL (1.0-4.8); Lymphocytes % (A) 24 %; MCH 26.5 pg (25.0-35.0); MCHC 31.8 g/dL (31.0-37.0); MCV 83.3 fL (80.0-100.0); Mean Platelet Volume 6.4; Monocytes # (A) 0.4 k/uL (0-1.0); Monocytes % (A) 6 %; Neutrophils # (A) 4.2 k/uL (1.3-7.7); Neutrophils % (A) 62 %; Platelet Count 333 k/uL (150-450); RBC 5.19 m/uL (3.80-5.40); RDW 14.8 % (11.5-15.5); WBC 6.7 k/uL (3.8-10.6)
== END ==
LOC: LABPAT 13:26
PROVIDERS: ATTEND Obstetrics & Gynecology
DX: Z01.812 Encounter for preprocedural laboratory examination (principal)
CPT/HCPCS: 36415; 85025

== ENCOUNTER 2017-12-10 08:57 | Day surgery (SDC) | payer BC, OTHER ==
[2017-12-03 14:52] VITALS: BMI 31.6
--- NOTE | 2017-12-09 15:42 | P.HPOB ---
History of Present Illness H&P Date: 12/09/17 Chief Complaint: Family planning Dianne is a 27-year-old female who has completed her family planning and desires permanent sterilization. She was a 8 para 2. She is completed her family planning and despite this fold discussion of alternatives including IUDs and control she is opting for permanent sterilization. Risks/ benefits/alternatives to this procedure were discussed with the patient in detail including but not limited to bleeding, infection, damage to bladder, damage to bowel, vascular injuries nerve injuries. She is therefore scheduled for a laparoscopic tubal occlusion with Filshie clips Past Medical History Past Medical History: No Reported History History of Any Multi-Drug Resistant Organisms: None Reported Past Surgical History: No Surgical Hx Reported Past Anesthesia/Blood Transfusion Reactions: Motion Sickness Smoking Status: Former smoker - Past Family History Mother Family Medical History: No Reported History Father Family Medical History: AFIB Medications and Allergies Home Medications Medication Instructions Recorded Confirmed Type No Known Home Medications [No 12/03/17 12/03/17 History Known Home Medications] Allergies Allergy/AdvReac Type Severity Reaction Status Date / Time Sulfa (Sulfonamide Allergy Rash/Hives Verified 12/03/17 14:46 Antibiotics) venom-honey bee Allergy Rash/Hives Verified 12/03/17 14:47 [bee venom (honey bee)] Exam Osteopathic Statement: *. No significant issues noted on an osteopathic structural exam other than those noted in the History and Physical/Consult. - OBG Physical Exam Breast: both: normal (no masses) Abdomen: bowel sounds normal, no diffuse tenderness, no bruit present, no guarding noted, no hepatomegaly, no splenomegaly, no mass Vulva: both: normal Vagina: normal moisture, no discharge Cervix: no lesion, no discharge Uterus: normal size, normal contour Adnexa: both: normal Anus/Rectum: normal perianal skin, no rectal mass, no hemorrhoids, heme negative
[~2017-12-10 08:57] MED LIST: DEXAMETHASONE SOD PHOSPHATE 10 MG/ML 1 ML VIAL IV ONE; LACTATED RINGERS 1,000 ML IV SCH; MIDAZOLAM 2 MG/2 ML VIAL IV PRN; ONDANSETRON 4 MG/2 ML VIAL IVP ONE; Pre Op ABX Message 1 EACH MISC MISCELLANE ONE
[2017-12-10 09:18] VITALS: TEMP 97.3
[2017-12-10] MEDS ORDERED: SCOPOLAMINE 1.5MG/72HR PATCH TRANSDERM ONE (09:33)
[2017-12-10] MEDS ORDERED: LIDOCAINE 1% 20 ML VIAL (10MG/ML) FOR IV START INTRADERMA ONE (09:36)
[2017-12-10] MEDS ORDERED: MIDAZOLAM 2 MG/2 ML VIAL ONE (10:06)
[2017-12-10] MEDS ORDERED: SUCCINYLCHOLINE CHLORIDE 100 MG/5 ML SYR IV ONE (10:06)
[2017-12-10] MEDS ORDERED: fentaNYL (PF) 50 MCG/ML 2 ML AMP ONE (10:06)
[2017-12-10] MEDS ORDERED: NEOSTIGMINE 1 MG/ML 10 ML VIAL ONE (10:06)
[2017-12-10] MEDS ORDERED: KETOROLAC 30 MG/ML 1 ML VIAL ONE (10:06)
[2017-12-10] MEDS ORDERED: GLYCOPYRROLATE 0.2 MG/ML 2 ML VIAL ONE (10:06)
[2017-12-10] MEDS ORDERED: ROCURONIUM BROMIDE 10 MG/ML 10 ML VIAL IV ONE (10:06)
[2017-12-10] MEDS ORDERED: PROPOFOL 10 MG/ML 20 ML VIAL IV ONE (10:06)
[2017-12-10] MEDS ORDERED: BUPIVACAINE (PF) 0.25% 30 ML VIAL SQ ONE (10:30)
--- NOTE | 2017-12-10 10:35 | P.OP ---
Date of Procedure: 12/10/17 Preoperative Diagnosis: Family planning Postoperative Diagnosis: Same Procedure(s) Performed: Laparoscopic tubal occlusion with Filshie clips Anesthesia: GEOVANI Surgeon: Jayy Long Estimated Blood Loss (ml): 3 Urine output (ml): 10 Pathology: none sent Condition: stable Disposition: same day Operative Findings: Normal female pelvic anatomy Description of Procedure: Patient was taken to the operating suite where a general anesthetic was found be adequate. She was prepped and draped in normal sterile fashion and placed in dorsal lithotomy position. Initially a speculum was inserted into the vagina and the anterior lip of the cervix was grasped with an Allis clamp and a uterine manipulator was inserted without difficulty. Other incidents were then removed and red rubber catheter was used to drain the bladder of urine. Once this was accomplished gloves were changed and attention was turned to the abdominal portion of the procedure. 2 mL of quarter percent Marcaine was then injected periumbilically and through this injected anesthetic a 5 mm skin incision was made. Through this incision under direct visualization with an optical trocar and sleeve the camera was inserted. Once peritoneal placement was assured gas was allowed to fully insufflate the abdomen and patient was then placed in steep Trendelenburg position. A second skin incision was then made 3 cm above the pubic symphysis in the midline and through this incision an 8 mm trocar and sleeve were inserted. Once this was accomplished uterus was elevated and the fallopian tubes were identified. First the right fallopian tube than the left fallopian tube had a Filshie clip applied between 2 and 3 cm from uterine cornu. No bleeding is noted in the mesosalpinx. Other instruments removed and gas allowed to expel from the abdomen. 5 deep breaths were provided. Sleeves were removed and 4-0 Vicryl used to close the incision subcuticularly. The remaining 8 mL of quarter percent Marcaine was injected around these incisions and instruments removed from the vagina. Sponge, lap, needle counts all correct 2. Patient was then taken to the recovery room in stable and satisfactory condition and will be discharged home once stable from anesthesia Plan - Discharge Summary New Discharge Prescriptions: New Ibuprofen [Motrin] 600 mg PO Q6HR PRN #30 tab PRN Reason: Pain Discharge Medication List Ibuprofen [Motrin] 600 mg PO Q6HR PRN #30 tab 12/10/17 [Rx] Follow up Appointment(s)/Referral(s): Jayy Long DO [Doctor of Osteopathic Medicine] - 2 Weeks Activity/Diet/Wound Care/Special Instructions: No heavy lifting, limit stairs and driving, and pelvic rest. If any high temperatures, heavy bleeding, or severe pain call my office Discharge Disposition: HOME SELF-CARE
[2017-12-10] MEDS: fentaNYL (PF) 50 MCG/ML 2 ML AMP IVP ONE ×2 (10:50→10:57)
[2017-12-10 10:55] VITALS: RESP 16
[2017-12-10] MEDS: HYDROmorphone 0.5 MG/0.5 ML SYRINGE IVP PRN ×2 (11:12→11:19)
[2017-12-10] MEDS ORDERED: PROMETHAZINE INJ 25 MG/ML 1 ML VIAL IVPB ONE (12:06)
[2017-12-10 12:41] VITALS: BP 119/68; PULSE 90
== END 2017-12-10 12:58 | disposition home or self-care (01) ==
LOC: OR 08:57
PROVIDERS: ATTEND Obstetrics & Gynecology
DX: Z30.2 Encounter for sterilization (principal); Z87.891 Personal history of nicotine dependence; Z88.2 Allergy status to sulfonamides; Z91.030 Bee allergy status
CPT/HCPCS: 81025; 58671; J2250; J1100; J2550; J2710; J2405; J3010; J1885; J0330; J2704; J1170

== ENCOUNTER 2022-03-30 18:23 | Emergency (ER) | payer BC, OTHER ==
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
[2022-03-30] MEDS ORDERED: fentaNYL (PF) 50 MCG/ML 2 ML AMP IVP STA (20:00)
[2022-03-30] MEDS ORDERED: DEXAMETHASONE SOD PHOSPHATE 10 MG/ML 1 ML VIAL IVP STA (20:17)
--- NOTE | 2022-03-30 20:47 | XR ---
EXAMINATION TYPE: XR lumbosacral spine min 4V DATE OF EXAM: 03/30/2022 COMPARISON: NONE HISTORY: Back pain TECHNIQUE: 5 views FINDINGS: Lumbar vertebral abnormal spacing and alignment. Posterior elements are intact. No compress ion fracture. Sacroiliac joints are intact. IMPRESSION: Negative lumbar spine exam. No fracture.
--- NOTE | 2022-03-30 20:49 | XR ---
EXAMINATION TYPE: XR thoracic spine complete DATE OF EXAM: 03/30/2022 COMPARISON: NONE HISTORY: Back pain TECHNIQUE: 3 views FINDINGS: Thoracic vertebral abnormal spacing and alignment. Posterior elements are intact. There is no paraspinal mass. IMPRESSION: Negative thoracic spine exam. No fracture.
[2022-03-30] MEDS ORDERED: SODIUM CHLORIDE 0.9% 1,000 ML IV ONE (22:48)
[2022-03-30 22:49] LABS: Appearance,Urine Cloudy (Clear); Bacteria,Urine Rare /hpf; Bilirubin,Urine Negative (Negative); Blood,Urine Trace (Negative); Color,Urine Yellow; Glucose,Urine (UA) Negative (Negative); Ketones,Urine Trace (Negative); Leukocyte Esterase,Urine Large (Negative); Mucus,Urine Many /hpf; Nitrite,Urine Negative (Negative); Protein,Urine 1+ (Negative); RBC,Urine 13 /hpf (0-5); Specific Gravity,Urine 1.032 (1.001-1.035); Squamous Epithelial Cell,Urine 8 /hpf (0-4); WBC,Urine 26 /hpf (0-5)
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
[2022-03-31 00:09] VITALS: BP 99/62; PULSE 79; RESP 18; TEMP 98.1
== END 2022-03-31 00:19 | disposition home or self-care (01) ==
LOC: EC 18:23
DX: M54.9 Dorsalgia, unspecified (principal); J45.909 Unspecified asthma, uncomplicated; Z91.030 Bee allergy status; Z88.2 Allergy status to sulfonamides; X50.0XXA Overexertion from strenuous movement or load, initial encounter
CPT/HCPCS: 81001; 87086; 72072; 72110; 72128; 72131; 99284; 96374; 96375; 96361; J1100; J3360; J3010

== ENCOUNTER 2024-05-30 19:45 | Inpatient (IN) | payer MEDICAID, OTHER ==
--- NOTE | 2024-05-30 21:36 | ED ---
Psych HPI - General Chief Complaint: Psychiatric Symptoms Stated Complaint: Mental Health Time Seen by Provider: 05/30/24 20:17 Source: patient, RN notes reviewed Mode of arrival: ambulatory Limitations: no limitations - History of Present Illness Initial Comments: 33-year-old female presents emergency department with chief complaint of depression, suicide nation. Patient states that she has been having a mental breakdown states that she staff tonight and cause some self-harm. Patient states she cut her arm with a knife. Her tetanus is up-to-date. Patient denies any illicit drug use other than marijuana, denies any alcohol abuse. Patient denies,'s ideation. Patient does have current psychiatric services. - Related Data Home Medications Medication Instructions Recorded Confirmed No Known Home Medications 05/30/24 05/30/24 Allergies Allergy/AdvReac Type Severity Reaction Status Date / Time Sulfa (Sulfonamide Allergy Rash/Hives Verified 05/30/24 21:01 Antibiotics) venom-honey bee Allergy Rash/Hives Verified 05/30/24 21:01 [bee venom (honey bee)] Review of Systems ROS Statement: Those systems with pertinent positive or pertinent negative responses have been documented in the HPI. ROS Other: All systems not noted in ROS Statement are negative. Past Medical History Past Medical History: Asthma History of Any Multi-Drug Resistant Organisms: None Reported Past Surgical History: No Surgical Hx Reported, Tubal Ligation Past Anesthesia/Blood Transfusion Reactions: No Reported Reaction Past Psychological History: Depression Smoking Status: Never smoker Past Alcohol Use History: Occasional, Rare Past Drug Use History: Marijuana - Past Family History Mother Family Medical History: No Reported History Father Family Medical History: AFIB General Exam Limitations: no limitations General appearance: alert, in no apparent distress Head exam: Present: atraumatic, normocephalic, normal inspection Eye exam: Present: normal appearance, PERRL, EOMI. Absent: scleral icterus, conjunctival injection, periorbital swelling ENT exam: Present: normal oropharynx, mucous membranes moist Neck exam: Present: normal inspection, full ROM. Absent: tenderness, meningismus, lymphadenopathy Respiratory exam: Present: normal lung sounds bilaterally. Absent: respiratory distress, wheezes, rales, rhonchi, stridor Cardiovascular Exam: Present: normal rhythm, tachycardia, normal heart sounds. Absent: systolic murmur, diastolic murmur, rubs, gallop, clicks Neurological exam: Present: alert, oriented X3 Psychiatric exam: Present: agitated Skin exam: Present: warm, dry, intact, normal color. Absent: rash Course Vital Signs 05/30/24 20:03 Temperature 98 F Pulse Rate 120 H Respiratory 20 Rate Blood Pressure 145/91 O2 Sat by Pulse 95 Oximetry Medical Decision Making - Medical Decision Making Was pt. sent in by a medical professional or institution (, PA, MANAGER MARKETING SALES, urgent care, hospital, or long-term...) When possible be specific @ -No Did you speak to anyone other than the patient for history (EMS, parent, family, police, friend...)? What history was obtained from this source @ -No Did you review nursing and triage notes (agree or disagree)? Why? @ -I reviewed and agree with nursing and triage notes Were old charts reviewed (outside hosp., previous admission, EMS record, old EKG, old radiological studies, urgent care reports/EKG's, long-term records)? Report findings @ -No old charts were reviewed Differential Diagnosis (chest pain, altered mental status, abdominal pain women, abdominal pain men, vaginal bleeding, weakness, fever, dyspnea, syncope, headache, dizziness, GI bleed, back pain, seizure, CVA, palpatations, mental health, musculoskeletal)? @Differential Mental Health Depression, anxiety, bipolar, psychosis, schizophrenia, borderline personality, situational depression, adjustment disorder, behavioral disorder, brain tumor, malingering, substance abuse, encephalopathy, medication reaction, dementia, hypothyroidism, degenerative neurologic disorder, lupus.... This is not meant to be all-inclusive list EKG interpreted by me (3pts min.). @ -None X-rays interpreted by me (1pt min.). @ -None done CT interpreted by me (1pt min.). @ -None done U/S interpreted by me (1pt. min.). @ -None done What testing was considered but not performed or refused? (CT, X-rays, U/S, labs)? Why? @ -None What meds were considered but not given or refused? Why? @ -None Did you discuss the management of the patient with other professionals (professionals i.e. , PA, MANAGER MARK[employer], lab, RT, psych nurse, rn social work, criminal justice lawyer, teacher, public health service officer, rn field case manager)? Give summary @ -EPS evaluate the patient and recommended inpatient treatment Was smoking cessation discussed for >3mins.? @ -No Was critical care preformed (if so, how long)? @ -No Were there social determinants of health that impacted care today? How? (Homelessness, low income, unemployed, alcoholism, drug addiction, transportation, low edu. Level, literacy, decrease access to med. care, residential, rehab)? @ -No Was there de-escalation of care discussed even if they declined (Discuss DNR or withdrawal of care, Hospice)? DNR status @ -No What co-morbidities impacted this encounter? (DM, HTN, Smoking, COPD, CAD, Cancer, CVA, ARF, Chemo, Hep., AIDS, mental health diagnosis, sleep apnea, morbid obesity)? @ -None Was patient admitted / discharged? Hospital course, mention meds given and route, prescriptions, significant lab abnormalities, going to OR and other pertinent info. @ -Admitted [To [facility]. for psychiatric treatment Undiagnosed new problem with uncertain prognosis? @ -No Drug Therapy requiring intensive monitoring for toxicity (Heparin, Nitro, Insulin, Cardizem)? @ -No Were any procedures done? @ -No Diagnosis/symptom? @ -Depression, suicide ideation Acute, or Chronic, or Acute on Chronic? @ -Acute Uncomplicated (without systemic symptoms) or Complicated (systemic symptoms)? @ -Complicated Side effects of treatment? @ -No Exacerbation, Progression, or Severe Exacerbation? @ -No Poses a threat to life or bodily function? How? (Chest pain, [place], [place], pneumonia, PE, COPD, DKA, ARF, appy, cholecystitis, CVA, Diverticulitis, Homicidal, Suicidal, threat to staff... and all critical care pts) @ -Yes suicidal - Lab Data Lab Results 05/30/24 Range/Units 20:07 Influenza Type A (PCR) Not Detected (Not Detectd) Influenza Type B (PCR) Not Detected (Not Detectd) RSV (PCR) Not Detected (Not Detectd) SARS-CoV-2 (PCR) Not Detected (Not Detectd) Disposition Clinical Impression: Depression, Suicidal ideation Disposition: TRANSFER TO PSYCH HOSP/UNIT Condition: Stable Time of Disposition: 22:44
[2024-05-30] MEDS: ONDANSETRON ODT 4 MG TAB PO STA (22:45)
[2024-05-31] MEDS ORDERED: MAG HYDROX/AL HYDROX/SIMETH 355 ML BOTTLE PO PRN (06:29)
[2024-05-31] MEDS ORDERED: traZODone HCL 50 MG TAB PO PRN (06:29)
[2024-05-31] MEDS ORDERED: MAGNESIUM HYDROXIDE 2,400 MG/30 ML CUP PO PRN (06:29)
[2024-05-31] MEDS ORDERED: LORazepam 2 MG/ML INJ IM PRN (06:29)
[2024-05-31] MEDS ORDERED: HALOPERIDOL LACTATE 5 MG/ML 1 ML VIAL IM PRN (06:29)
[2024-05-31] MEDS ORDERED: ACETAMINOPHEN TAB 325 MG TAB PO PRN (06:29)
[2024-05-31] MEDS ORDERED: haloperidoL 5 MG TAB PO PRN (06:29)
[2024-05-31] MEDS ORDERED: LORazepam 1 MG TAB PO PRN (06:29)
[2024-05-31] MEDS: IBUPROFEN 600 MG TAB PO PRN (09:00)
[2024-05-31] MEDS: NICOTINE 14MG/24HR PATCH TRANSDERM SCH (09:04)
[2024-05-31 09:38] LABS: Appearance,Urine Cloudy (Clear); Bacteria,Urine Many /hpf; Bilirubin,Urine 1+ (Negative); Blood,Urine Large (Negative); Color,Urine Yellow; Glucose,Urine (UA) Negative (Negative); Hyaline Casts,Urine 12 /lpf (0-2); Ketones,Urine 1+ (Negative); Leukocyte Esterase,Urine Negative (Negative); Mucus,Urine Many /hpf; Nitrite,Urine Negative (Negative); Protein,Urine 1+ (Negative); RBC,Urine 4 /hpf (0-5); Squamous Epithelial Cell,Urine 6 /hpf (0-4); WBC,Urine 6 /hpf (0-5)
[2024-05-31 09:45] LABS: Amphetamine Screen,Urine Not Detected (NotDetected); Barbiturate Screen,Urine Not Detected (NotDetected); Benzodiazepines Screen,Urine Not Detected (NotDetected); Cocaine Screen,Urine Not Detected (NotDetected); Methadone Screen, Urine Not Detected (NotDetected); Opiate Screen,Urine Not Detected (NotDetected); Oxycodone Screen, Urine Not Detected (NotDetected); Phencyclidine Screen,Urine Not Detected (NotDetected); Tricyclic Antidepressant,Urine Not Detected (NotDetected); Urn Cannabinoid Scrn Detected (NotDetected)
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
[2024-05-31] MEDS: ARIPiprazole 5 MG TAB PO SCH (12:58)
[2024-05-31] MEDS: BACITRACIN ZINC 500 UNIT/GM OINT 28.4 GM TUBE TOPICAL PRN (13:13)
[2024-05-31] MEDS: MELATONIN 5 MG TABLET PO SCH (20:49)
[2024-05-31] MEDS: hydrOXYzine pamoate 25 MG CAP PO SCH (20:49)
[2024-06-01 09:02] LABS: Basophils # (A) 0.1 k/uL (0-0.2); Basophils % (A) 1 %; Eosinophils # (A) 0.1 k/uL (0-0.7); Eosinophils % (A) 1 %; HCT 42.8 % (34.0-46.0); HGB 14.3 gm/dL (11.4-16.0); Lymphocytes # (A) 1.8 k/uL (1.0-4.8); Lymphocytes % (A) 24 %; MCH 31.2 pg (25.0-35.0); MCHC 33.4 g/dL (31.0-37.0); MCV 93.6 fL (80.0-100.0); Mean Platelet Volume 7.1; Monocytes # (A) 0.4 k/uL (0-1.0); Monocytes % (A) 5 %; Neutrophils % (A) 66 %; Platelet Count 324 k/uL (150-450); RBC 4.57 m/uL (3.80-5.40); RDW 12.9 % (11.5-15.5); WBC 7.5 k/uL (3.8-10.6)
[2024-06-01 09:10] LABS: ALT 69 U/L (4-34); AST 44 U/L (14-36); African American GFR (CKD) >90 (>60 ml/min/1.73 sqM); Albumin 4.4 g/dL (3.5-5.0); Alkaline Phosphatase 92 U/L (38-126); Anion Gap 11 mmol/L; Blood Urea Nitrogen 13 mg/dL (7-17); Calcium 9.2 mg/dL (8.4-10.2); Carbon Dioxide 26 mmol/L (22-30); Chloride 102 mmol/L (98-107); Glucose 151 mg/dL (74-99); Non-African American GFR(CKD) >90 (>60 ml/min/1.73 sqM); Potassium 3.6 mmol/L (3.5-5.1); Sodium 139 mmol/L (137-145); Total Bilirubin 1.8 mg/dL (0.2-1.3); Total Protein 7.3 g/dL (6.3-8.2)
[2024-06-01] MEDS: ARIPiprazole 5 MG TAB PO ONE (12:28)
--- NOTE | 2024-06-01 12:48 | P.PN ---
Progress Note - Text Progress Note Date: 06/01/24 Interval History: Patient was seen in group and was directable and agreeable to speak with technical writer and editor in the office. She states sleeping much better last night. Continues to report feelings of guilt however does report some improvements in terms of mood. She states appetite is still poor however she was able to eat a sausage and some fruit this morning for breakfast. She reports suicidal thoughts with no plan or intent however does report them being less intense than yesterday. She reports experiencing some dizziness yesterday shortly after taking the Abilify however denied any dizziness thus far today. She spoke to her brother yesterday and states things are well otherwise between them. At this time patient denies any homicidal ideations, intent or plan. Patient denies any auditory, visual hallucinations and denies any paranoia or delusions. Patient has been compliant with meds, attending groups. Mental Status Exam: General Appearance: Patient appears to be stated age is alert, directable, and cooperative. Behavior: Patient is calmly seated without any agitated behavior. Speech: Patient's speech is fluent and nonpressured. Mood/Affect: Mood is improving mildly, affect is congruent and constricted. Suicidality/Homicidality: Patient reports suicidal ideations with no intent or plan but denies any homicidal ideation intent or plan. Perceptions: Patient denies any visual hallucinations and denies any auditory hallucinations Though content/process: There is no evidence of any delusional thought content and thought process is linear and logical Memory and concentration: AOX3, grossly intact for the purposes of this session Judgment and insight: Improving mildly Assessment Bipolar disorder, current episode depressed Borderline personality disorder Cannabis use disorder Plan: -Patient continues to meet criteria for inpatient psychiatric admission for symptom stabilization and safety. Patient has signed adult voluntary form and medication consent and was placed in patient's chart. -Medications: Increase Abilify to 10 mg daily for mood stabilization, continue Vistaril 50 mg at bedtime for sleep, melatonin 5 mg at bedtime for sleep -When necessary Ativan and Haldol for agitation/aggression. -Labs: Reviewed -NRT -not needed as patient does not smoke -SW on board for discharge planning. Encouraged the patient to participate in milieu.
--- NOTE | 2024-06-01 22:08 | P.MDCNMH ---
<Steve Lozano - Last Filed: 06/01/24 22:49> History of Present Illness H&P Date: 06/01/24 History of present illness; 33-year-old female presents to the emergency department with suicidal thoughts. She denies homicidal ideations. Denies auditory and visual hallucinations. Verbalizes the presence of guns in the home, but states they are locked up. She denies alcohol use. Verbalizes daily marijuana use. Denies any other substance use. REVIEW OF SYSTEMS: All systems reviewed, pertinent positives and negatives noted in HPI. All other symptoms are negative. PHYSICAL EXAMINATION: Vitals reviewed GENERAL: No acute distress. Well developed, well nourished. HEENT: No scleral icterus. Normocephalic, atraumatic. CARDIOVASCULAR: S1 and S2 present. No murmurs, rubs, or gallops. PULMONARY: Chest is clear to auscultation, no wheezing, rhonchi, or crackles. MUSCULOSKELETAL: No apparent joint swelling and deformities. EXTREMITIES: No apparent cyanosis, clubbing, or pedal edema. NEUROLOGICAL: The patient is alert and oriented x3, Gross neurological examination did not reveal any focal deficits. 5/5 strength bilateral UE and LE. CN2-12 intact without gross abnormality. SKIN: Singular ringworm type lesion on the left side of abdomen. Assessment and plan 33-year-old female presents to the emergency department with suicidal thoughts. Admitted to internal medicine for medical consult. Chronic Medical Conditions #Possible singular ringworm lesion on left abdomen -Start Clotrimazole/Betamethasone cream BID #Transaminitis #Hyperbillirubinemia -AST 44, ALT 69 -Total bilirubin 1.8 -Monitor CMP # History of nicotine dependence -Continue nicotine 14 mg / 24-hour patch # Anxiety/depression, suicidal ideation -Psychiatric medication management per the primary psychiatry team Code status: Full code Patient is stable from medical stand point Dictation was produced using [employer] dictation software. Please excuse any grammatical, word or spelling errors. Past Medical History Past Medical History: Asthma History of Any Multi-Drug Resistant Organisms: None Reported Past Surgical History: No Surgical Hx Reported, Tubal Ligation Past Anesthesia/Blood Transfusion Reactions: No Reported Reaction Smoking Status: Never smoker - Past Family History Mother Family Medical History: No Reported History Father Family Medical History: AFIB Medications and Allergies Home Medications Medication Instructions Recorded Confirmed Type No Known Home Medications 05/30/24 05/30/24 History Allergies Allergy/AdvReac Type Severity Reaction Status Date / Time Sulfa (Sulfonamide Allergy Rash/Hives Verified 05/30/24 21:01 Antibiotics) venom-honey bee Allergy Rash/Hives Verified 05/30/24 21:01 [bee venom (honey bee)] Physical Exam Vitals: Vital Signs Temp Pulse Resp BP Pulse Ox 06/01/24 06:24 97.9 F 86 14 100/65 95 Results CBC & Chem 7: 06/01/24 08:01 06/01/24 08:01 Labs: Abnormal Lab Results - Last 24 Hours (Table) 06/01/24 Range/Units 08:01 Glucose 151 H (74-99) mg/dL Total Bilirubin 1.8 H (0.2-1.3) mg/dL AST 44 H (14-36) U/L ALT 69 H (4-34) U/L <Scout Wright M - Last Filed: 06/01/24 23:51> Physical Exam Vitals: Vital Signs Temp Pulse Resp BP Pulse Ox 06/01/24 06:24 97.9 F 86 14 100/65 95 Cranial Nerve Examination - Cranial Nerves Cranial Nerve II- Optic: Intact Cranial Nerve III- Oculomotor: Intact Cranial Nerve IV- Trochlear: Intact Cranial Nerve V- Trigeminal: Intact Cranial Nerve - Abducens: Intact Cranial Nerve VII- Facial: Intact Cranial Nerve VIII- Auditory: Intact Cranial Nerve IX- Glossopharyngeal: Intact Cranial Nerve X- Vagus: Intact Cranial Nerve XI- Accessory: Intact Cranial Nerve XII- Hypoglossal: Intact Results CBC & Chem 7: 06/01/24 08:01 06/01/24 08:01 Labs: Abnormal Lab Results - Last 24 Hours (Table) 06/01/24 Range/Units 08:01 Glucose 151 H (74-99) mg/dL Total Bilirubin 1.8 H (0.2-1.3) mg/dL AST 44 H (14-36) U/L ALT 69 H (4-34) U/L Assessment and Plan Assessment: I have seen and evaluated the patient today. I Discussed the case with the resident and agree with the resident's findings I edited the assessment and plan as necessary as documented in the resident's note.
[2024-06-01] MEDS: CLOTRIMAZOLE/BETAMETH 1-0.05% CREAM 45 GM TUBE TOPICAL SCH (22:37)
[2024-06-02] MEDS: ARIPiprazole 10 MG TAB PO SCH (08:31)
--- NOTE | 2024-06-02 13:12 | P.PN ---
Progress Note - Text Progress Note Date: 06/02/24 Interval History: Patient was seen wandering the hallways and was directable and agreeable to sp [place] with publicity writer in the office. Patient notably appears bright in affect, less anxious than previous encounters. He was seen interacting with her peers on the unit. Patient corroborates this, stating she feels "carburizer" which she feels like is related to the significant improvement in her sleep at night. She denied any depression or anxiety. She states her brother visited her yesterday and is anxious for her to return home as he has been watching her kids. At this time patient denies any suicidal or homicidal ideations, intent or plan. Patient denies any auditory, visual hallucinations and denies any paranoia or delusions. Patient denies any side effects from the medications and has been compliant with meds. Mental Status Exam: General Appearance: Patient appears to be stated age is alert, directable, and cooperative. Behavior: Patient is calmly seated without any agitated behavior. Speech: Patient's speech is fluent and nonpressured. Mood/Affect: Mood is "happy", affect is congruent and full range, reactive. Suicidality/Homicidality: Patient denies having any suicidal or homicidal ideation intent or plan. Perceptions: Patient denies any visual hallucinations and denies any auditory hallucinations Though content/process: There is no evidence of any delusional thought content and thought process is linear and goal-directed. Memory and concentration: AOX3, grossly intact for the purposes of this session Judgment and insight: Improving mildly Assessment Bipolar disorder, current episode depressed Borderline personality disorder Cannabis use disorder Plan: -Patient continues to meet criteria for inpatient psychiatric admission for symptom stabilization and safety. Patient has signed adult voluntary form and medication consent and was placed in patient's chart. -Medications: Continue Abilify 10 mg daily for mood stabilization, Vistaril 50 mg at bedtime for sleep, melatonin 5 mg at bedtime for sleep -When necessary Ativan and Haldol for agitation/aggression. -Labs: Reviewed -NRT -not needed as patient does not smoke -SW on board for discharge planning. Encouraged the patient to participate in milieu. Anticipate discharge home tomorrow with mother and children
[2024-06-03 06:34] VITALS: BP 96/62; PULSE 85; RESP 16; TEMP 97.4
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
== END 2024-06-03 13:44 | disposition home or self-care (01) | DRG 753 ==
LOC: EC 19:45 → 3MHU 23:54
PROVIDERS: ADMIT Psychiatry & Neurology Psychiatry; ATTEND Psychiatry & Neurology Psychiatry
DX: F31.30 Bipolar disorder, current episode depressed, mild or moderate severity, unspecified (principal); R45.851 Suicidal ideations; F60.3 Borderline personality disorder; S41.112A Laceration without foreign body of left upper arm, initial encounter; G47.9 Sleep disorder, unspecified; F41.9 Anxiety disorder, unspecified; R74.01 Elevation of levels of liver transaminase levels; E80.6 Other disorders of bilirubin metabolism; F17.210 Nicotine dependence, cigarettes, uncomplicated; X78.9XXA Intentional self-harm by unspecified sharp object, initial encounter; Z91.411 Personal history of adult psychological abuse; Z81.8 Family history of other mental and behavioral disorders; Z56.0 Unemployment, unspecified; Z63.4 Disappearance and death of family member
CPT/HCPCS: 80053; 80306; 81001; 81025; 82075; 84443; 85025; 87636; 99285